=== PATIENT | male | born 1945 | race Hispanic/Latino ===

== ENCOUNTER 2018-12-30 10:51 | Day surgery (SDC) | payer OTHER ==
[2018-12-30] MEDS ORDERED: Ringers Lactate 1,000 ML IV ONE (11:10)
[2018-12-30] MEDS: OXYMETAZOLINE HCL 0.05% 15ML NAS ONE ×3 (11:17→11:31)
[2018-12-30] MEDS ORDERED: NA CHLORIDE 0.9% 500 ML ONE (12:25)
[2018-12-30] MEDS ORDERED: LIDOCAINE 1% W/EPI 1:100,000 MDV 50 ML VIAL ONE (12:25)
[2018-12-30] MEDS ORDERED: OXYMETAZOLINE HCL 0.05% 15ML NAS ONE (12:25)
[2018-12-30] MEDS ORDERED: MIDAZOLAM HCL 2 MG/2 ML INJ ONE (12:31)
[2018-12-30] MEDS ORDERED: PROPOFOL 200 MG/20 ML VIAL IV ONE (12:38)
[2018-12-30] MEDS ORDERED: FENTANYL CITR 100 MCG/2 ML ONE (12:38)
[2018-12-30] MEDS ORDERED: LIDOCAINE 2% MPF 5 ML VIAL ONE (12:39)
[2018-12-30] MEDS ORDERED: ONDANSETRON 4 MG/2 ML VIAL ONE (12:40)
[2018-12-30] MEDS ORDERED: ROCURONIUM 50 MG/5 ML VIAL IV ONE (12:40)
[2018-12-30] MEDS ORDERED: EPHEDRINE SULF 50 MG/ML VIAL ONE (12:58)
--- NOTE | 2018-12-30 13:15 | P.BOP ---
Preoperative diagnosis: septal deviation, turb hypertrophy, nasal obstruction Postoperative diagnosis: same Primary procedure: septoplasty, submucuous resection B IT with downfracture Coach Cleaner: NONE,NONE Estimated blood loss: 15ml Specimen: none Findings: bone and cartilage deviation Complications: None Implants: gelfoam to B nares Fluids & blood products: crystalloid 700ml Transferred to: Recovery Room Condition: Good
[2018-12-30] MEDS ORDERED: GLYCOPYRROLATE 0.2 MG/ML SYR ONE ×3 (13:26→13:42)
[2018-12-30] MEDS ORDERED: NEOSTIGMINE 1 MG/ML -10 ML VIAL ONE (13:27)
[2018-12-30] MEDS ORDERED: HYDROCODONE/APAP 5/325 MG TAB PO ONE (14:45)
[2018-12-30] MEDS ORDERED: HYDROCODONE/APAP 5/325 MG TAB ONE (15:04)
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
== END 2018-12-30 15:27 | disposition home or self-care (01) ==
LOC: OR 10:51
PROVIDERS: ATTEND Otolaryngology
PROC: 09BL3ZZ Excision of Nasal Turbinate, Percutaneous Approach (ICD-10-PCS; 2018-12-30)
PROC: 09BM0ZZ Excision of Nasal Septum, Open Approach (ICD-10-PCS; principal; 2018-12-30 12:00)
DX: J34.2 Deviated nasal septum (principal); J34.3 Hypertrophy of nasal turbinates; J34.89 Other specified disorders of nose and nasal sinuses; R06.83 Snoring; G47.30 Sleep apnea, unspecified; I10 Essential (primary) hypertension; Z79.899 Other long term (current) drug therapy
CPT/HCPCS: 30520; 30140; J2704; J2710; J2250; J3010; J2405

== ENCOUNTER 2018-12-31 02:09 | Emergency (ER) | payer OTHER ==
--- NOTE | 2018-12-31 02:44 | EDPHYS ---
Physician Documentation [facility] Name: Jose Norman Age: 73 yrs Sex: Male : 1945 Arrival Date: 12/31/2018 Time: 02:10 Bed 7 Private MD: Panda Shah HPI: 12/31 02:40 This 73 yrs old Male presents to ER via Wheelchair with complaints of Post elva Surgical Pain - Nasal, Urinary Problem. 02:40 The patient presents with urinary symptoms, dribbling of urine, retention. Onset: The elva symptoms/episode began/occurred 1 day(s) ago. Modifying factors: The symptoms are alleviated by nothing, the symptoms are aggravated by nothing. Associated signs and symptoms: The patient has no apparent associated signs or symptoms. The patient has not experienced similar symptoms in the past. Historical: - Allergies: 02:21 No Known Allergies; tl2 - Home Meds: 02:21 losartan oral oral [Active]; Tramadol Oral [Active]; tl2 - PMHx: 02:21 Hypertension; tl2 - PSHx: 02:21 nasal surgery; tl2 - Immunization history:: Adult Immunizations up to date. - Social history:: Smoking status: Patient/guardian denies using tobacco. - Ebola Screening: : No symptoms or risks identified at this time. - Family history:: not pertinent. ROS: 02:40 Constitutional: Negative for fever, chills, and weight loss, Eyes: Negative for injury, elva pain, redness, and discharge, ENT: Negative for injury, pain, and discharge, Neck: Negative for injury, pain, and swelling, Cardiovascular: Negative for chest pain, palpitations, and edema, Respiratory: Negative for shortness of breath, cough, wheezing, and pleuritic chest pain, Back: Negative for injury and pain, : Negative for injury, bleeding, discharge, and swelling, MS/Extremity: Negative for injury and deformity, Skin: Negative for injury, rash, and discoloration, Neuro: Negative for headache, weakness, numbness, tingling, and seizure, Psych: Negative for depression, anxiety, suicide ideation, homicidal ideation, and hallucinations, Allergy/Immunology: Negative for hives, rash, and allergies, Endocrine: Negative for neck swelling, polydipsia, polyuria, polyphagia, and marked weight changes, Hematologic/Lymphatic: Negative for swollen nodes, abnormal bleeding, and unusual bruising. 02:40 Abdomen/GI: Positive for abdominal pain, of the right lower quadrant and left lower quadrant. Exam: 02:40 Constitutional: This is a well developed, well nourished patient who is awake, alert, elva and in no acute distress. Head/Face: Normocephalic, atraumatic. Eyes: Pupils equal round and reactive to light, extra-ocular motions intact. Lids and lashes normal. Conjunctiva and sclera are non-icteric and not injected. Cornea within normal limits. Periorbital areas with no swelling, redness, or edema. ENT: Nares patent. No nasal discharge, no septal abnormalities noted. Tympanic membranes are normal and external auditory canals are clear. Oropharynx with no redness, swelling, or masses, exudates, or evidence of obstruction, uvula midline. Mucous membranes moist. Neck: Trachea midline, no thyromegaly or masses palpated, and no cervical lymphadenopathy. Supple, full range of motion without nuchal rigidity, or vertebral point tenderness. No Meningismus. Chest/axilla: Normal chest wall appearance and motion. Nontender with no deformity. No lesions are appreciated. Cardiovascular: Regular rate and rhythm with a normal S1 and S2. No gallops, murmurs, or rubs. Normal PMI, no JVD. No pulse deficits. Respiratory: Lungs have equal breath sounds bilaterally, clear to auscultation and percussion. No rales, rhonchi or wheezes noted. No increased work of breathing, no retractions or nasal flaring. Back: No spinal tenderness. No costovertebral tenderness. Full range of motion. Skin: Warm, dry with normal turgor. Normal color with no rashes, no lesions, and no evidence of cellulitis. MS/ Extremity: Pulses equal, no cyanosis. Neurovascular intact. Full, normal range of motion. Neuro: Awake and alert, GCS 15, oriented to person, place, time, and situation. Cranial nerves II-XII grossly intact. Motor strength 5/5 in all extremities. Sensory grossly intact. Cerebellar exam normal. Normal gait. Psych: Awake, alert, with orientation to person, place and time. Behavior, mood, and affect are within normal limits. 02:40 Abdomen/GI: Inspection: abdomen appears normal, Bowel sounds: normal, Palpation: mild abdominal tenderness, moderate abdominal tenderness, in the suprapubic area, Liver: no appreciated palpable abnormalities, Hernia: not appreciated. Vital Signs: 02:21 BP 174 / 92; Pulse 89; Resp 18; Temp 98.3(A); Pulse Ox 95% on R/A; Weight 86.18 kg; tl2 Height 5 ft. 8 in. (172.72 cm); Pain 5/10; 03:00 BP 147 / 86; Pulse 70; Resp 18; Pulse Ox 98% ; ea 02:21 Body Mass Index 28.89 (86.18 kg, 172.72 cm) tl2 MDM: 02:19 Patient medically [facility]. [facility] 02:26 [facility] medically [facility] 02:40 Data reviewed: vital signs, nurses notes, lab test result(s), urinalysis. [facility] 12/31 02:55 Order name: Urine Dipstick--Ancillary (enter results) [facility] 12/31 02:40 Order name: Urine Dipstick-Ancillary (obtain specimen); Complete Time: 02:42 [facility] 12/31 02:40 Order name: Burt; Complete Time: 02:41 [facility] 12/31 02:40 Order name: Burt Leg Bag; Complete Time: 03:13 [facility] 12/31 02:40 Order name: Bladder Scanner; Complete Time: 02:41 [facility] Administered Medications: 02:53 Drug: Flomax 0.4 mg Route: PO; ea 03:16 Follow up: Response: No adverse reaction ea 02:53 Drug: Cipro 500 mg Route: PO; ea 03:16 Follow up: Response: No adverse reaction Disposition: 12/31/18 02:43 Discharged to Home. Impression: Retention of urine, Retention of urine, unspecified. - Condition is Stable. - Discharge Instructions: Burt Catheter Care, Adult, Acute Urinary Retention, Male, [id number], Burt Catheter Care, Adult, [id number]. - Prescriptions for Cipro 250 mg Oral Tablet - take 1 tablet by ORAL route every 12 hours; 14 tablet. Flomax 0.4 mg Oral Capsule, Sust. Release 24 hr - take 1 capsule by ORAL route once daily 1/2 hour following the same meal each day; 30 capsule. - Medication Reconciliation Form, Thank You Letter, Antibiotic Education, Prescription Opioid Use form. - Follow up: Private Physician; When: 2 - 3 days; Reason: Recheck today's complaints, Continuance of care, Re-evaluation by your physician. Follow up: Mariaelena Thompson MD; When: 1 - 2 days; Reason: Recheck today's complaints, Re-evaluation by your physician. - Problem is new. - Symptoms have improved. Signatures: Dispatcher [employer] EDPanda De Leon MD MD cha Knox, Taylor RN RN tl2 Corazon Eldridge RN RN ea Corrections: (The following items were deleted from the chart) 03:22 02:43 12/31/2018 02:43 Discharged to Home. Impression: Retention of urine; Retention of ea urine, unspecified. Condition is Stable. Forms are Medication Reconciliation Form, Thank You Letter, Antibiotic Education, Prescription Opioid Use. Follow up: Private Physician; When: 2 - 3 days; Reason: Recheck today's complaints, Continuance of care, Re-evaluation by your physician. Follow up: Mariaelena Thompson; When: 1 - 2 days; Reason: Recheck today's complaints, Re-evaluation by your physician. Problem is new. Symptoms have improved. elva
--- NOTE | 2018-12-31 02:44 | ER ---
Nurse's Notes [facility] Name: Jose Norman Age: 73 yrs Sex: Male : 1945 Arrival Date: 12/31/2018 Time: 02:10 Bed 7 Private MD: Diagnosis: Retention of urine;Retention of urine, unspecified Presentation: 12/31 02:19 Presenting complaint: Patient states: Had nasal surgery this morning, has been unable tl2 to urinate since 4 pm. Transition of care: patient was not received from another setting of care. Onset of symptoms was December 30, 2018 at 16:00. Risk Assessment: Do you want to hurt yourself or someone else? Patient reports no desire to harm self or others. Initial Sepsis Screen: Does the patient meet any 2 criteria? No. Patient's initial sepsis screen is negative. Does the patient have a suspected source of infection? No. Patient's initial sepsis screen is negative. Care prior to arrival: None. 02:19 Method Of Arrival: Wheelchair tl2 02:19 Acuity: MICHELLE 3 tl2 Triage Assessment: 02:21 General: Appears in no apparent distress. uncomfortable, Behavior is anxious. : tl2 Reports inability to void, since 1600 yesterday. Historical: - Allergies: 02:21 No Known Allergies; tl2 - Home Meds: 02:21 losartan oral oral [Active]; Tramadol Oral [Active]; tl2 - PMHx: 02:21 Hypertension; tl2 - PSHx: 02:21 nasal surgery; tl2 - Immunization history:: Adult Immunizations up to date. - Social history:: Smoking status: Patient/guardian denies using tobacco. - Ebola Screening: : No symptoms or risks identified at this time. - Family history:: not pertinent. Screenin:24 Abuse screen: Denies threats or abuse. Nutritional screening: No deficits noted. tl2 Tuberculosis screening: No symptoms or risk factors identified. Fall Risk None identified. Assessment: 02:39 General: Appears uncomfortable, Behavior is calm, cooperative, appropriate for age. ea General: Bladder scan shows approximately 767. Pain: Complains of pain in suprapubic area. Neuro: Level of Consciousness is awake, alert, obeys commands, Oriented to person, place, time, situation. Cardiovascular: Patient's skin is warm and dry. Respiratory: Airway is patent Respiratory effort is even, unlabored, Respiratory pattern is regular, symmetrical. : Reports inability to void, since 4 PM yesterday. Derm: Skin is pink, warm \T\ dry. 03:15 Reassessment: Patient and/or family updated on plan of care and expected duration. Pain ea level reassessed. Patient is alert, oriented x 3, equal unlabored respirations, skin warm/dry/pink. Post void bladder scan volume: 0. Pt reports he is feeling better, verbalized the understanding of discharge instruction and Burt catheter care. Leg bag in place pt teaching provided on proper use of leg bag. Both and pt verbalized the understanding. Pt left ED ambulatory accompanied by . Pt tolerating well. Vital Signs: 02:21 BP 174 / 92; Pulse 89; Resp 18; Temp 98.3(A); Pulse Ox 95% on R/A; Weight 86.18 kg; tl2 Height 5 ft. 8 in. (172.72 cm); Pain 5/10; 03:00 BP 147 / 86; Pulse 70; Resp 18; Pulse Ox 98% ; ea 02:21 Body Mass Index 28.89 (86.18 kg, 172.72 cm) tl2 ED Course: 02:10 Patient arrived in ED. ds1 02:18 Panda Kelly MD is Attending Physician. elva 02:21 Triage completed. tl2 02:21 Arm band placed on right wrist. tl2 02:24 Patient has correct armband on for positive identification. Fall risk band placed. tl2 Placed in gown. Bed in low position. Call light in reach. Side rails up X 1. Adult w/ patient. 02:38 Corazon Eldridge RN is Primary Nurse. ea 02:38 Burt cath inserted, using sterile technique, 16 Fr., by me, balloon inflated, to ea gravity drainage. 02:43 Mariaelena Thompson MD is Referral Physician. elva 03:15 No provider procedures requiring assistance completed. Patient did not have IV access ea during this emergency room visit. Administered Medications: 02:53 Drug: Flomax 0.4 mg Route: PO; ea 03:16 Follow up: Response: No adverse reaction ea 02:53 Drug: Cipro 500 mg Route: PO; ea 03:16 Follow up: Response: No adverse reaction ea Output: 03:14 Urine: 875ml (Burt); Total: 875ml. ea Outcome: 02:43 Discharge ordered by . elva 03:15 Discharged to home ambulatory, with significant other. ea 03:15 Condition: improved 03:15 Discharge instructions given to patient, Instructed on discharge instructions, follow up and referral plans. medication usage, Demonstrated understanding of instructions, follow-up care, medications, Prescriptions given X 2. 03:22 Patient left the ED. ea Signatures: Panda Kelly MD MD cha Sanford, Demi ds1 Jojo Johnson, RN RN tl2 Corazon Eldridge RN RN ea
[2018-12-31] MEDS ORDERED: TAMSULOSIN 0.4 MG SR CAP ONE (02:59)
[2018-12-31] MEDS ORDERED: CIPROFLOXACIN HCL 500 MG TAB ONE (03:00)
[2018-12-31 03:36] LABS: Urine Blood NEGATIVE (NEG); Urine Glucose NEGATIVE (NEG); Urine Protein NEGATIVE (NEG); Urine Specific Gravity 1.015 (1.005-1.030)
== END 2018-12-31 03:22 | disposition home or self-care (01) ==
LOC: ER 02:09
DX: R33.9 Retention of urine, unspecified (principal); I10 Essential (primary) hypertension
CPT/HCPCS: 51702; 81003; 99284

== ENCOUNTER 2020-12-03 09:02 | Observation (INO) | payer OTHER ==
--- OUTSIDE RECORDS SUMMARY | 2020-12-03 09:05 | XMS REPORT | Continuity of Care Document ---
:1945 Author Organization [facility] t Address [address] [place] [address] Care Team Providers Name Role Phone Unavailable Unavailable Unavailable Problems This patient has no known problems. Allergies, Adverse Reactions, Alerts This patient has no known allergies or adverse reactions. Medications Ordered Filled Start Stop Current Ordering Indication Dosage Frequency Signature Comments Components Source Medication Medication Date Date Medication? Clinician (SIG) Name Name Tamsulosin Tamsulosin No Kesha [address] [facility] HCl HCl 03[facility]16 [facility] Procedures This patient has no known procedures. Encounters Start End Encounter Admission Attending Care Care Encounter Source Date/Time Date/Time Type Type Clinicians Facility Department ID 2020-11-15 2020-11-15 Outpatient [facility] [id number] [facility] 2020-08-16 2020-08-16 Outpatient [facility] [id number] [facility] 2020-05-18 2020-05-18 Outpatient [facility] [id number] [facility] 2020-04-03 2020-04-03 Outpatient [facility] [id number] [facility] 2020-03-16 2020-03-16 [facility] [id number] [facility] 10:51:00 10:51:00 [facility] l [facility] Outpati ent Clinics 2020-02-23 2020-02-23 [facility] [id number] [facility] 05:40:00 05:40:00 [facility] Outpati ent Clinics 2020-02-21 2020-02-21 [facility] [id number] [facility] 11:40:00 11:40:00 [facility] Outpati ent Clinics 2020-02-20 2020-02-20 [facility] [id number] [facility] 16:20:00 16:20:00 t [facility] Outpati ent Clinics 2020-02-16 2020-02-16 [facility] [id number] [facility] 13:00:00 13:00:00 [facility] 2019-12-19 2019-12-19 [facility] [id number] [facility] 14:00:00 14:00:00 t [employer] [facility] Outpat[facility] Clinics Results This patient has no known results.
[2020-12-03] MEDS ORDERED: MORPHINE 4 MG/ML SYR ONE ×2 (10:47→13:19)
[2020-12-03] MEDS ORDERED: ONDANSETRON 4 MG/2 ML VIAL ONE ×2 (10:47→16:42)
[2020-12-03 11:44] LABS: Absolute Lymphocytes (CBC) 1.5 K/uL (0.7-4.9); Basophils % 0.7 % (0-1.3); Lymphocytes % 24.6 % (15.3-44.8); MPV 9.2 fL (7.6-11.3); RBC Red Blood Cell Count 3.78 M/uL (4.33-5.43)
[2020-12-03 11:45] LABS: Protime INR 1.12
[2020-12-03 11:59] LABS: ALT/SGPT 43 U/L (12-78); AST/SGOT 21 U/L (15-37); Albumin 3.4 g/dL (3.4-5.0); Alkaline Phosphatase 72 U/L (45-117); BUN Blood Urea Nitrogen 12 mg/dL (7-18); Bicarbonate 30 mmol/L (21-32); Bilirubin Direct 0.2 mg/dL (0-0.2); Bilirubin Total 0.4 mg/dL (0.2-1.0); Glucose Level 131 mg/dL (74-106); Magnesium 2.4 mg/dL (1.8-2.4); NT PRO-BNP 209 pg/mL (<450); Protein, Total 6.8 g/dL (6.4-8.2); Sodium Level 143 mmol/L (136-145); Troponin (Emerg Dept Use Only) < 0.02 ng/mL (0.0-0.045)
--- NOTE | 2020-12-03 12:04 | RAD REPORT ---
EXAM DESCRIPTION: CT - Angio Aorta For Dissection - 12/03/2020 11:46 am CLINICAL HISTORY: . Chest and abdominal pain COMPARISON: None TECHNIQUE: Computed tomography angiography of the chest, abdomen pelvis were obtained. 100 cc Isovue 370 was administered intravenously. Coronal and sagittal reconstruction were performed. MIP 3D reconstruction was performed All CT scans are performed using dose optimization technique as appropriate and may include automated exposure control or mA/KV adjustment according to patient size. FINDINGS: An aortic dissection is not seen. An aortic aneurysm is not displayed. The celiac, SMA and JULIETH are patent . A lung consolidation is not present. A pericardial effusion is not seen. A pleural effusion is not n oted. Fatty liver. Spleen, pancreas adrenals kidneys demonstrate no significant abnormality. There is no evidence of diverticulitis. Postsurgical changes involve spine and pelvis Appendix is borderline enlarged. No stranding within the adjacent fat. . The prostate gland is moderately enlarged. Large left and moderate right inguinal hernias contain fat IMPRESSION: Negative for an aortic dissection. Borderline enlargement of the appendix. Given that there is no stranding within the adjacent fat this probably is a normal finding for the patient. However, if the patient has clinical symptoms to sugge st appendicitis then a CT scan with oral contrast and opacification of the terminal ileum/cecum would be recommended
--- NOTE | 2020-12-03 12:04 | RAD REPORT ---
EXAM DESCRIPTION: Nicole Single View12/03/2020 10:05 am CLINICAL HISTORY: Chest pain COMPARISON: 2015 FINDINGS: The lungs appear clear of acute infiltrate. The heart is mildly enlarged IMPRESSION: No acute abnormalities displayed
--- NOTE | 2020-12-03 13:03 | EDPHYS ---
Physician Documentation [facility] Name: Jose Norman Age: 75 yrs Sex: Male : 1945 Arrival Date: 12/03/2020 Time: 09:04 Bed 18 Private MD: ED Physician Avinash Bess HPI: 12/03 09:27 This 75 yrs old Male presents to ER via Ambulatory with complaints of Back jmm Pain. 09:27 The patient presents with pain that is acute. Onset: The symptoms/episode jmm began/occurred gradually, 3 day(s) ago. The pain radiates to the thoracic area, lumbar area, left low back and right low back. Associated signs and symptoms: Pertinent negatives:. Modifying factors: The patient symptoms are alleviated by remaining still, the patient symptoms are aggravated by any movement. The patient has not experienced similar symptoms in the past. Historical: - Allergies: 09:15 No Known Allergies; sv - PMHx: 09:15 Hypertension; sv - PSHx: 09:15 nasal surgery; back rods; pelvic plate; Cholecystectomy; sv - Immunization history:: Client reports receiving the 2nd dose of the Covid vaccine, Client reports receiving the 1st dose of the Covid vaccine. - Social history:: Smoking status: Patient denies any tobacco usage or history of. ROS: 09:27 Constitutional: Negative for fever, chills, and weight loss. jmm 09:27 Abdomen/GI: Negative for abdominal pain, nausea, vomiting, diarrhea, and constipation. 09:27 Cardiovascular: Positive for chest pain. 09:27 Back: Positive for pain with movement. 09:27 All other systems are negative. Exam: 09:27 Head/Face: atraumatic. Eyes: EOMI, no conjunctival erythema appreciated ENT: Moist jmm Mucus Membranes Neck: Trachea midline, Supple 09:27 Cardiovascular: Regular rate and rhythm. No edema appreciated Respiratory: Normal respirations, no respiratory distress appreciated Abdomen/GI: Non distended, soft 09:27 Skin: General appearance color normal MS/ Extremity: Moves all extremities, no obvious deformities appreciated, no edema noted to the lower extremities Neuro: Awake and alert, normal gait Psych: Behavior is normal, Mood is normal, Patient is cooperative and pleasant 09:27 Constitutional: The patient appears alert, awake, uncomfortable. 09:27 Chest/axilla: Palpation: tenderness, that is moderate. 09:27 Back: pain, that is moderate, ROM is painful. Vital Signs: 09:13 BP 167 / 79; Pulse 62; Resp 20; Temp 98.3; Pulse Ox 97% ; Weight 88.45 kg; Height 5 ft. sv 9 in. (175.26 cm); Pain 9/10; 11:14 BP 134 / 70; Pulse 72; Resp 17 S; Pulse Ox 98% on R/A; jd3 12:12 BP 144 / 76; Pulse 61; Resp 16 S; Pulse Ox 95% on R/A; jd3 13:36 BP 148 / 71; Pulse 63; Resp 13 S; Pulse Ox 97% on R/A; jd3 16:16 BP 151 / 82; Pulse 61; Resp 15 S; Pulse Ox 96% on R/A; jd3 17:45 BP 142 / 89; Pulse 63; Resp 17 S; Pulse Ox 97% on R/A; jd3 19:18 Pulse 63; Resp 16 S; Pulse Ox 98% on R/A; ad5 09:13 Body Mass Index 28.80 (88.45 kg, 175.26 cm) sv MDM: 09:15 Patient medically screened. [facility] 13:02 Data reviewed: vital signs, nurses notes. Counseling: I had a detailed discussion with [facility] the patient and/or guardian regarding: the historical points, exam findings, and any diagnostic results supporting the discharge/admit diagnosis, lab results, radiology results, the need for further work-up and treatment in the hospital. ED course: I discussed the patient with Thomas whom accepted the patient to Dr. Bess's service. . 12/03 09:16 Order name: Basic Metabolic Panel [facility] 12/03 09:16 Order name: CBC with Diff; Complete Time: 12:08 [facility] 12/03 09:16 Order name: LFT's; Complete Time: 12:08 [facility] 12/03 09:16 Order name: Magnesium; Complete Time: 12:08 [facility] 12/03 09:16 Order name: NT PRO-BNP; Complete Time: 12:08 [facility] 12/03 09:16 Order name: PT-INR; Complete Time: 12:08 [facility] 12/03 09:16 Order name: Troponin (emerg Dept Use Only); Complete Time: 12:08 [facility] 12/03 09:17 Order name: Basic Metabolic Panel; Complete Time: 12:08 [facility] 12/03 13:01 Order name: SARS-COV-2 RT PCR; Complete Time: 13:03 [facility] 12/03 15:37 Order name: ESR [facility] 12/03 15:37 Order name: CRP [facility] 12/03 15:37 Order name: Procalcitonin [facility] 12/03 15:37 Order name: Blood Culture Adult (2) [facility] 12/03 09:16 Order name: XRAY Chest (1 view); Complete Time: 12:08 [facility] 12/03 09:16 Order name: EKG; Complete Time: 09:17 [facility] 12/03 09:16 Order name: Cardiac monitoring; Complete Time: 10:25 [facility] 12/03 09:16 Order name: EKG - Nurse/Tech; Complete Time: : [facility] 12/03 09:16 Order name: IV Saline Lock; Complete Time: 10:09 [facility] 12/03 09:16 Order name: Labs collected and sent; Complete Time: 10:09 [facility] 12/03 09:16 Order name: CT Aorta for Dissection; Complete Time: 12:08 [facility] 12/03 13:07 Order name: Pelvis Wo Cont; Complete Time: 15:33 [facility] 12/03 16:18 Order name: C-Reactive Protein; Complete Time: 16:24 [facility] 12/03 16:45 Order name: Procalcitonin; Complete Time: 16:55 [facility] 12/03 17:19 Order name: Sedimentation Rate, Westergren; Complete Time: 17:20 [facility] 12/03 09:16 Order name: O2 Per Protocol; Complete Time: 10:25 [facility] 12/03 09:16 Order name: O2 Sat Monitoring; Complete Time: : [facility] 12/03 10:09 Order name: Labs - recollect needed; Complete Time: 10:09 sv Administered Medications: 10:32 Drug: morphine 4 mg Route: IVP; Site: left forearm; jd3 11:30 Follow up: Response: No adverse reaction; RASS: Alert and Calm (0) jd3 10:32 Drug: Zofran (Ondansetron) 4 mg Route: IVP; Site: left forearm; jd3 11:30 Follow up: Response: No adverse reaction jd3 13:05 Drug: morphine 4 mg Route: IVP; Site: left forearm; jd3 19:18 Follow up: Response: No adverse reaction; Pain is decreased ad5 Disposition: 12/04 19:09 Co-signature as Attending Physician, Avinash Bess MD. rn Disposition: 12/03/20 13:03 Hospitalization ordered by Thony Bess for Observation. Preliminary diagnosis is Chest pain, unspecified. - Bed requested for Telemetry/MedSurg (observation). - Status is Observation. mw2 - Condition is Stable. - Problem is new. - Symptoms are unchanged. Signatures: Dispatcher [employer] EDMS Therese Ash, RN Rosendo Forrest, ULISES PA [facility] Avinash Bess MD MD rn Davies, Jonathon, RN RN jd3 Westbrook, MyKena mw2 Cameron Damon ad5 Corrections: (The following items were deleted from the chart) 12/03 12:12 11:10 CORONAVIRUS+MR.LAB.BRZ ordered. EDME EDMS 12:52 12:33 Abdomen Pelvis W Con+CT.RAD.BRZ ordered. EDME EDMS 13:07 12:52 Abdomen ordered. EDME EDMS 17:37 13:03 Hospitalization Ordered by Thony Bess MD for Observation. Preliminary sv diagnosis is Chest pain, unspecified. Bed requested for Telemetry/MedSurg (observation). Status is Observation. Condition is Stable. Problem is new. Symptoms are unchanged. [facility] 19:51 17:37 12/03/2020 13:03 Hospitalization Ordered by Thony Bess MD for Observation. mw2 Preliminary diagnosis is Chest pain, unspecified. Bed requested for Telemetry/MedSurg (observation). Status is Observation. Condition is Stable. Problem is new. Symptoms are unchanged. sv
--- NOTE | 2020-12-03 13:03 | ER ---
Nurse's Notes [facility] Name: Jose Norman Age: 75 yrs Sex: Male : 1945 Arrival Date: 12/03/2020 Time: 09:04 Bed 18 Private MD: Diagnosis: Chest pain, unspecified Presentation: 12/03 09:13 Chief complaint: Patient's son or daughter states: upper and mid back, chest pain worse sv with movement x 2 days. Coronavirus screen: Client denies travel out of the [place] in the last 14 days. At this time, the client does not indicate any symptoms associated with coronavirus-19. Ebola Screen: No symptoms or risks identified at this time. Initial Sepsis Screen: Does the patient meet any 2 criteria? No. Patient's initial sepsis screen is negative. Does the patient have a suspected source of infection? No. Patient's initial sepsis screen is negative. Risk Assessment: Do you want to hurt yourself or someone else? Patient reports no desire to harm self or others. Onset of symptoms was December 01, 2020. 09:13 Method Of Arrival: Ambulatory sv 09:13 Acuity: MICHELLE 2 sv Historical: - Allergies: 09:15 No Known Allergies; sv - PMHx: 09:15 Hypertension; sv - PSHx: 09:15 nasal surgery; back rods; pelvic plate; Cholecystectomy; sv - Immunization history:: Client reports receiving the 2nd dose of the Covid vaccine, Client reports receiving the 1st dose of the Covid vaccine. - Social history:: Smoking status: Patient denies any tobacco usage or history of. Screenin:23 Abuse screen: Denies threats or abuse. Nutritional screening: No deficits noted. jd3 Tuberculosis screening: No symptoms or risk factors identified. Fall Risk Ambulatory Aid- None/Bed Rest/Nurse Assist (0 pts). Gait- Normal/Bed Rest/Wheelchair (0 pts) Mental Status- Oriented to own ability (0 pts). Total Kapadia Fall Scale indicates No Risk (0-24 pts). Assessment: 09:05 General: Appears in no apparent distress. uncomfortable, Behavior is calm, cooperative, jd3 appropriate for age. Pain: Complains of pain in back Pain radiates to chest Quality of pain is described as aching. Neuro: Level of Consciousness is awake, alert, obeys commands, Oriented to person, place, time, situation. Cardiovascular: Denies chest pain, Capillary refill < 3 seconds Patient's skin is warm and dry. Rhythm is regular. Respiratory: Airway is patent Respiratory effort is even, unlabored, Respiratory pattern is regular, symmetrical, Denies cough, shortness of breath. GI: No signs and/or symptoms were reported involving the gastrointestinal system. : No signs and/or symptoms were reported regarding the genitourinary system. EENT: No signs and/or symptoms were reported regarding the EENT system. Derm: Skin is intact, Skin is dry, Skin is normal, Skin temperature is warm. Musculoskeletal: Circulation, motion, and sensation intact. Range of motion: intact in all extremities. 11:14 Reassessment: Patient appears in no apparent distress at this time. No changes from jd3 previously documented assessment. Patient and/or family updated on plan of care and expected duration. Pain level reassessed. Patient is alert, oriented x 3, equal unlabored respirations, skin warm/dry/pink. 12:12 Reassessment: Patient appears in no apparent distress at this time. No changes from jd3 previously documented assessment. Patient and/or family updated on plan of care and expected duration. Pain level reassessed. Patient is alert, oriented x 3, equal unlabored respirations, skin warm/dry/pink. 13:35 Reassessment: Patient appears in no apparent distress at this time. Patient and/or jd3 family updated on plan of care and expected duration. Pain level reassessed. Patient is alert, oriented x 3, equal unlabored respirations, skin warm/dry/pink. awaiting admission. 15:00 Reassessment: Patient appears in no apparent distress at this time. No changes from jd3 previously documented assessment. Patient and/or family updated on plan of care and expected duration. Pain level reassessed. Patient is alert, oriented x 3, equal unlabored respirations, skin warm/dry/pink. 16:17 Reassessment: Patient appears in no apparent distress at this time. Patient and/or jd3 family updated on plan of care and expected duration. Pain level reassessed. Patient is alert, oriented x 3, equal unlabored respirations, skin warm/dry/pink. Hospitalist at bedside. 17:00 Reassessment: Patient appears in no apparent distress at this time. Patient and/or jd3 family updated on plan of care and expected duration. Pain level reassessed. Patient is alert, oriented x 3, equal unlabored respirations, skin warm/dry/pink. awaiting admission. 18:00 Reassessment: Patient appears in no apparent distress at this time. No changes from jd3 previously documented assessment. Patient and/or family updated on plan of care and expected duration. Pain level reassessed. Patient is alert, oriented x 3, equal unlabored respirations, skin warm/dry/pink. 18:30 Reassessment: Patient appears in no apparent distress at this time. Patient and/or jd3 family updated on plan of care and expected duration. Pain level reassessed. Patient is alert, oriented x 3, equal unlabored respirations, skin warm/dry/pink. report attempt made, nurse was busy. 19:18 Reassessment: Patient appears in no apparent distress at this time. Patient and/or ad5 family updated on plan of care and expected duration. Pain level reassessed. Patient is alert, oriented x 3, equal unlabored respirations, skin warm/dry/pink. Patient denies pain at this time. Vital Signs: 09:13 BP 167 / 79; Pulse 62; Resp 20; Temp 98.3; Pulse Ox 97% ; Weight 88.45 kg; Height 5 ft. sv 9 in. (175.26 cm); Pain 9/10; 11:14 BP 134 / 70; Pulse 72; Resp 17 S; Pulse Ox 98% on R/A; jd3 12:12 BP 144 / 76; Pulse 61; Resp 16 S; Pulse Ox 95% on R/A; jd3 13:36 BP 148 / 71; Pulse 63; Resp 13 S; Pulse Ox 97% on R/A; jd3 16:16 BP 151 / 82; Pulse 61; Resp 15 S; Pulse Ox 96% on R/A; jd3 17:45 BP 142 / 89; Pulse 63; Resp 17 S; Pulse Ox 97% on R/A; jd3 19:18 Pulse 63; Resp 16 S; Pulse Ox 98% on R/A; ad5 09:13 Body Mass Index 28.80 (88.45 kg, 175.26 cm) sv ED Course: 09:04 Patient arrived in ED. ds1 09:06 Rosendo Brown PA is PHCP. jmm 09:06 Avinash Bess MD is Attending Physician. jm 09:07 Erik Alejandre, CARLOS is Primary Nurse. jd3 09:14 Triage completed. sv 09:15 Arm band placed on. sv 09:45 Missed attempt(s): 20 gauge in right forearm. Bleeding controlled, band aid applied, jd3 catheter tip intact. Missed attempt(s): 20 gauge in left antecubital area. Bleeding controlled, band aid applied, catheter tip intact. 09:50 Inserted saline lock: 20 gauge in left forearm, using aseptic technique. Blood sv collected. Flushed left forearm with 2 ml normal saline. 10:05 XRAY Chest (1 view) In Process Unspecified. EDMS 10:09 Basic Metabolic Panel Sent. sv 11:46 CT Aorta for Dissection In Process Unspecified. EDMS 12:23 Nurse Practitioner and/or Physician Records Coordinator to see patient. jd3 12:24 Patient has correct armband on for positive identification. Bed in low position. Call jd3 light in reach. Side rails up X 1. Adult w/ patient. hall monitor on. Pulse ox on. NIBP on. 13:02 Thony Bess MD is Hospitalizing Provider. [facility] 18:33 No provider procedures requiring assistance completed. Patient admitted, IV remains in jd3 place. Administered Medications: 10:32 Drug: morphine 4 mg Route: IVP; Site: left forearm; jd3 11:30 Follow up: Response: No adverse reaction; RASS: Alert and Calm (0) jd3 10:32 Drug: Zofran (Ondansetron) 4 mg Route: IVP; Site: left forearm; jd3 11:30 Follow up: Response: No adverse reaction jd3 13:05 Drug: morphine 4 mg Route: IVP; Site: left forearm; jd3 19:18 Follow up: Response: No adverse reaction; Pain is decreased ad5 Outcome: 13:03 Decision to Hospitalize by Provider. [facility] 18:33 Condition: stable jd3 19:38 Admitted to Med/surg accompanied by tech, via wheelchair, Report called to CARLOS Chandra ad5 19:38 Instructed on the need for admit, Demonstrated understanding of instructions. 19:51 Patient left the ED. mw2 Signatures: Dispatcher [employer] EDTherese Jade RN RN sv Mickail, Joel, PA PA jmm Sanford, Demi ds1 Erik Alejandre RN RN jd3 Lavell Badillo mw2 Cameron Damon Corrections: (The following items were deleted from the chart) 09:17 09:13 Acuity: MICHELLE 3 sv sv 10:32 10:32 morphine 4 mg IVP in right antecubital jd3 jd3 13:05 13:05 morphine 4 mg IVP in right antecubital jd3 jd3
--- NOTE | 2020-12-03 15:30 | RAD REPORT ---
EXAM DESCRIPTION: CT - Pelvis Wo Cont - 12/03/2020 3:09 pm COMPARISON: None. TECHNIQUE: Axial 5 millimeter thick images of the pelvis were obtained following oral contrast. Exam is performed as a a requested follow-up due to abnormalities on earlier study. Sagittal and coronal reformatted images were generated and reviewed. All CT scans are performed using dose optimization technique as appropriate and may include automated exposure control or mA/KV adjustment according to patient size. FINDINGS: Contrast fills the urinary bladder and contrast is seen in the nondilated ureters from the earlier contrast-enhanced study. Enlarged prostate gland is present with lobulated contour projectin g into the bladder base. Degenerative and postsurgical changes are present to the pelvis with no acut e or pathologic bone process identified. Patient has large fat filled bilateral inguinal hernias. Nondilated small bowel loops are partially opacified by contrast. The oral contrast has not reached t he terminal ileum. However, the amount of fat the bowel loops is felt to be sufficient for adequate evaluation. Patient has moderately prominent sigmoid diverticulosis. Imaged portions of col on show no acute findings. The appendix is relatively prominent in size measuring up to 9-10 mm. The appendix is relatively short in overall length. There is a air and bowel content in the base of the a ppendix. Fatty tissues surrounding the appendix are pristine. Although prominent in diameter, the pos sibility of acute appendicitis is felt to be very low. Adjacent small bowel loops are unremarkable. T here is no thickening of the wall at the tip of the cecum. Moderate stool volume is present in the ce cum. No free air, free fluid or pneumatosis. IMPRESSION: Re-evaluation of the appendix again demonstrates a relatively prominent size. However th ere is no additional finding supporting appendicitis. Acute appendicitis is felt to be highly unlikel y. Additional nonacute findings are detailed in the body of the report.
[2020-12-03] MEDS ORDERED: HYDRALAZINE HCL 20 MG/ML VIAL IV PRN (16:36)
--- NOTE | 2020-12-03 16:57 | P.HP ---
Certification for Inpatient Patient admitted to: Observation With expected LOS: <2 Midnights Patient will require the following post-hospital care: None Practitioner: I am a practitioner with admitting privileges, knowledge of patient current condition, hospital course, and medical plan of care. Services: Services provided to patient in accordance with Admission requirements found in Title 42 Section 412.3 of the Code of Federal Regulations <[email or web address] metz - Last Filed: 12/03/20 19:45> Patient History Date of Service: 12/03/20 Reason for admission: Chest pain History of Present Illness: Patient is a 75-year-old male with a past medical history significant for hypertension and chronic back pain who presents with complaint of back and chest pain that been ongoing for the past 3 days. Patient reported that pain started initially from the back. Patient indicated that he later started experiencing pain in the right chest wall and pain migrated to the substernal chest area. Patient rated pain as 9/10 in severity and described pain as stabbing in quality. Patient initially denied abdominal pain on assessment but later informed attending MD that he had right lower quadrant pain for the past 5 days. Patient denies any other signs or symptoms. Symptoms are aggravated or relieved by nothing. Patient decided to present to the hospital due to worsening symptoms. - Past Medical/Surgical History -: HTN -: Chronic pain pain - Social History Smoking Status: Never smoker Alcohol use: No CD- Drugs: No Caffeine use: No Place of Residence: Home <Hedy Crouchjayro Heidi - Last Filed: 12/03/20 19:45> Date of Service: 12/03/20 - Family History Family History: Reviewed- Non-Contributory <Thony Bess - Last Filed: 12/03/20 21:11> Allergies No Known Allergies Allergy (Verified 12/28/18 14:49) Home Medications: Losartan Potassium 100 mg PO [id number] 12/28/18 Metoprolol Succinate [Toprol Xl] 100 mg PO [id number] 12/28/18 hydroCHLOROthiazide [Hydrochlorothiazide] 25 mg PO DAILY 12/28/18 Review of Systems General: Unremarkable Eyes: Unremarkable ENT: Unremarkable Respiratory: Unremarkable Cardiovascular: Chest Pain Gastrointestinal: Abdominal Pain Genitourinary: Unremarkable Musculoskeletal: Unremarkable Integumentary: Unremarkable Neurological: Unremarkable Lymphatics: Unremarkable <MkioHedyjayro E - Last Filed: 12/03/20 19:45> Physical Examination - Physical Exam General: Alert, In no apparent distress, Oriented x3 HEENT: Atraumatic, PERRLA, Mucous membr. moist/pink, EOMI, Sclerae nonicteric Neck: Supple, 2+ carotid pulse no bruit, No LAD, Without JVD or thyroid abnormality Respiratory: Clear to auscultation bilaterally, Normal air movement Cardiovascular: No edema, Regular rate/rhythm, Normal S1 S2 Capillary refill: <2 Seconds Gastrointestinal: Normal bowel sounds, Tenderness (RLQ) Musculoskeletal: No clubbing, No tenderness Integumentary: No rashes Neurological: Normal gait, Normal speech, Normal strength at 5/5 x4 extr, Normal tone, Normal affect Lymphatics: No axilla or inguinal lymphadenopathy External genitalia: Deferred Rectal: Deferred - Studies Laboratory Data (last 24 hrs) 12/03/20 11:28: PT 12.9 H, INR 1.12 12/03/20 11:28: WBC 6.30, Hgb 11.0 L, Hct 33.0 L, Plt Count 184 12/03/20 11:28: Sodium 143, Potassium 4.0, BUN 12, Creatinine 0.76, Glucose 131 H, Magnesium 2.4, Total Bilirubin 0.4, AST 21, ALT 43, Alkaline Phosphatase 72 <Manuel Crouch - Last Filed: 12/03/20 19:45> - Studies Laboratory Data (last 24 hrs) 12/03/20 11:28: PT 12.9 H, INR 1.12 12/03/20 11:28: WBC 6.30, Hgb 11.0 L, Hct 33.0 L, Plt Count 184 12/03/20 11:28: Sodium 143, Potassium 4.0, BUN 12, Creatinine 0.76, Glucose 131 H, Magnesium 2.4, Total Bilirubin 0.4, AST 21, ALT 43, Alkaline Phosphatase 72 <Thony Bess - Last Filed: 12/03/20 21:11> Assessment and Plan - Plan --Chest pain of unclear etiology. Cardiology consulted. Will trend troponins. Telemetry. Echocardiogram pending. Will await further recommendations from hemstitching machine operator. --Abdominal pain. Imaging indicates large fat filled bilateral inguinal hernias as well as borderline enlargement of the appendix. Surgeon consulted. Will await further recommendations. Continue conservative management for now. --Acute on chronic back pain. Will manage with current medication regimen. --Hypertension. Poorly controlled. Continue home medications and hydralazine p.r.n.. --DVT prophylaxis with heparin subQ Discharge Plan: Home Plan to discharge in: 48 Hours - Advance Directives Does patient have a Living Will: No Does patient have a Durable POA for Healthcare: No - Code Status/Comfort Care Code Status Assessed: Yes Code Status: Full Code Critical Care: No <Manuel Crouch - Last Filed: 12/03/20 19:45> - Plan Patient seen and examined. Chest pain - trend troponins, Echo ordered, cardiology consulted, r/o ACS RLQ abd pain - x5 days, CT with enlarged appendix, no other signs of appendicitis, pt without leukocytosis and afebrile. Does report some chills at home. Has moderate RLQ tenderness on exam, no rebound -unlikely appendicitis, possibly smoldering, however no local adenopathy or fat stranding. General Surgery consulted - agreed and ok to feed, will monitor with abd exams and see if it declares itself, no antibiotics Back pain - also for the past ~5 days; reports some mild/vague weakness of b/l legs. RLE: 5/5 strength, LLE: 4+/5. Pain control, consider MRI if no improvement / further red flags. He denies radiculopathy and no new neuropathy. Time Spent Managing Pts Care (In Minutes): 60 <Thony Bess - Last Filed: 12/03/20 21:11>
[2020-12-03] MEDS ORDERED: HYDROCODONE/APAP 5/325 MG TAB PO PRN (19:55)
[2020-12-03] MEDS ORDERED: ONDANSETRON 4 MG/2 ML VIAL IV PRN (19:55)
[2020-12-03] MEDS ORDERED: ALBUTEROL 2.5 MG/3 ML NEB SOL NEB PRN (19:55)
[2020-12-03] MEDS ORDERED: ACETAMINOPHEN 500 MG TAB PO PRN (19:55)
[2020-12-03 20:02] VITALS: BMI 31.8
[2020-12-03] MEDS: ASPIRIN 81 MG CHEWABLE TABLET PO SCH (22:00)
[2020-12-03] MEDS: HEPARIN 5000 UNIT/ML 1 ML VIAL SQ SCH (22:00)
--- NOTE | 2020-12-03 22:11 | P.CNS ---
Date of Consult: 12/03/20 PC: This 75-year-old male presents to the emergency room with abdominal pain for diagnosis and treatment. HPC: Patient states he has been having abdominal pain for the last 4-5 days. Located in the upper portion of the abdomen. Became very severe and came to the emergency room. PMH: Hypertension, chronic abdominal pain SOC: No known allergies, on antihypertensives and chronic pain medication SYS REVIEW: White states he is not been feeling well for the last 4-5 days. Has a lot of backache. Also some hesitancy with urination. No cough or fever. O/E awake alert stable, states at the moment that he is pain-free. HEENT: Not jaundiced Chest: Chest movement equal bilaterally ABD: Abdomen is soft, no guarding or rebound LOCO: Intact DATA: CT scan is unremarkable, comments are made about the appendix, but low suspicion for appendicitis IMPRESSION: Abdominal pain of unknown origin PLAN: Continue to observe patient, will reassess in a.m.. Does not appear to have any need for surgical intervention at the moment.
[2020-12-04 03:48] LABS: Absolute Lymphocytes (CBC) 1.7 K/uL (0.7-4.9); Basophils % 0.5 % (0-1.3); Hematocrit 31.1 % (39.6-49.0); Lymphocytes % 27.7 % (15.3-44.8); MPV 9.8 fL (7.6-11.3); RBC Red Blood Cell Count 3.54 M/uL (4.33-5.43)
[2020-12-04 04:17] LABS: BUN Blood Urea Nitrogen 10 mg/dL (7-18); Bicarbonate 32 mmol/L (21-32); Glucose Level 135 mg/dL (74-106); HDL Cholesterol 40 mg/dL (40-60); LDL Cholesterol, Calculated 96 (<130); Potassium 4.1 mmol/L (3.5-5.1); Sodium Level 143 mmol/L (136-145); Troponin I < 0.02 ng/mL (0.0-0.045)
[2020-12-04 06:00] LABS: Urine Appearance CLEAR (Clear); Urine Bilirubin NEGATIVE (Negative); Urine Blood NEGATIVE (Negative); Urine Color YELLOW (Yellow); Urine Glucose NEGATIVE (Negative); Urine Protein NEGATIVE (Negative); Urine pH 5.5 (5.0-7.0)
[2020-12-04 06:04] LABS: Urine Microscopic Reflex NO UMIC
[2020-12-04] MEDS: HEPARIN 5000 UNIT/ML 1 ML VIAL SQ SCH (08:54)
[2020-12-04] MEDS: ASPIRIN 81 MG CHEWABLE TABLET PO SCH (08:54)
--- NOTE | 2020-12-04 11:04 | P.DS ---
Admission Date: 12/03/20 Discharge Date: 12/04/20 Disposition: ROUTINE DISCHARGE Discharge Condition: FAIR Reason for Admission: Chest pain Consultations: General surgeon-Dr. Diop - Problems (1) Chest pain Current Visit: Yes Status: Acute (2) Chronic back pain Current Visit: Yes Status: Acute (3) Essential hypertension Current Visit: Yes Status: Acute Brief History of Present Illness: 75-year-old Greenlandic-speaking gentleman presented to the emergency department with a complaint of back pain that radiated to involve his chest. Patient was also complaining of abdominal pain. Initial troponin in the ED negative. EKG unremarkable. CT dissection unremarkable except borderline enlarged appendix. The patient was hospitalized for ACS rule out. Hospital Course: Troponin trended negative. His chest pain resolved. Was complaining of right shoulder pain which is worse with movement. Patient was seen in consultation by general surgery-Dr. Diop will consider patient abdomen benign with no surgical indication. Serial abdominal examination showed benign abdomen. ACS has been ruled out. Patient is currently asymptomatic and deemed stable for dunia wing. He is asked to follow with his PCP within 1 week to re-evaluate his abdomen. Vital Signs/Physical Exam: Temp Pulse Resp BP Pulse Ox 97.8 F 55 18 131/71 95 12/04/20 08:00 12/04/20 08:00 12/04/20 08:00 12/04/20 08:00 12/04/20 08:00 General: Alert, In no apparent distress, Oriented x3 HEENT: PERRLA, Sclerae nonicteric Neck: Supple, JVD not distended Respiratory: Clear to auscultation bilaterally, Normal air movement Cardiovascular: No edema, Regular rate/rhythm, Normal S1 S2 Gastrointestinal: Normal bowel sounds, Soft and benign, Non-distended, No tenderness Musculoskeletal: No swelling, No erythema Integumentary: No rashes Neurological: Normal strength at 5/5 x4 extr, Cranial nerves 3-12 intact Laboratory Data at Discharge: WBC 6.20 K/uL (4.3-10.9) 12/04/20 02:57 Hgb 10.5 g/dL (13.6-17.9) L 12/04/20 02:57 Hct 31.1 % (39.6-49.0) L 12/04/20 02:57 Plt Count 182 K/uL (152-406) 12/04/20 02:57 PT 12.9 SECONDS (9.5-12.5) H 12/03/20 11:28 INR 1.12 12/03/20 11:28 Sodium 143 mmol/L (136-145) 12/04/20 02:57 Potassium 4.1 mmol/L (3.5-5.1) 12/04/20 02:57 BUN 10 mg/dL (7-18) 12/04/20 02:57 Creatinine 0.75 mg/dL (0.55-1.3) 12/04/20 02:57 Glucose 135 mg/dL (74-106) H 12/04/20 02:57 Magnesium 2.4 mg/dL (1.8-2.4) 12/03/20 11:28 Total Bilirubin 0.4 mg/dL (0.2-1.0) 12/03/20 11:28 AST 21 U/L (15-37) 12/03/20 11:28 ALT 43 U/L (12-78) 12/03/20 11:28 Alkaline Phosphatase 72 U/L (45-117) 12/03/20 11:28 Troponin I Cancelled 12/04/20 03:00 Triglycerides 125 mg/dL (<150) 12/04/20 02:57 Cholesterol 161 mg/dL (<200) 12/04/20 02:57 HDL Cholesterol 40 mg/dL (40-60) 12/04/20 02:57 Cholesterol/HDL Ratio 4.03 12/04/20 02:57 Home Medications: Losartan Potassium 100 mg PO DAILY 12/28/18 Finasteride 1 tab PO DAILY 12/03/20 Prazosin HCl 1 tab PO DAILY 12/03/20 Tamsulosin [Flomax*] 1 cap PO DAILY 12/03/20 Aspirin [Aspirin EC] 81 mg PO DAILY #30 tablet. 12/04/20 New Medications: Aspirin [Aspirin EC] 81 mg PO DAILY #30 tablet. Diet: AHA Activity: Ad priyanka Followup: Elmer Arce MD [Primary Care Provider] - 1-2 Weeks
[2020-12-04 12:45] VITALS: BP 135/78; TEMP 97.4
[2020-12-04 12:52] VITALS: O2SAT 94
--- NOTE | 2020-12-05 12:03 | EKG ---
Test Date: 2020-12-03 Test Time: 09:20:15 [employer] Supervisor: SHERLY MEASUREMENT RESULTS: Intervals: Rate: 71 OR: 220 QRSD: 84 QT: 412 QTc: 447 [place]: P: 56 OR: 220 QRS: 21 T: 46 INTERPRETIVE STATEMENTS: Sinus rhythm with 1st degree AV block Otherwise normal ECG Compared to ECG 08/14/2015 16:12:15 Sinus bradycardia no longer present Ventricular premature complex(es) no longer present Electronically Signed On 12-05-20 11:54:47 CDT by Ruslan Davies
--- NOTE | 2020-12-05 12:49 | ECHO ---
HEIGHT: 5 ft 6 in WEIGHT: 197 lb 8 oz DATE OF STUDY: 12/04/[address]: Manuel Crouch 2-DIMENSIONAL: YES M.MODE: YES DOPPLER: YES COLOR FLOW: YES TDS: NO PORTABLE: NO DEFINITY: NO BUBBLE STUDY: NO DIAGNOSIS: CARDIAC HISTORY: CATHERIZATION: SURGERY: PROSTHETIC VALVE: PACEMAKER: MEASUREMENTS (cm) DIASTOLIC (NORMALS) SYSTOLIC (NORMALS) IVSd 1.1 (0.6-1.2) LA Diam 3.9 (1.9-4.0) LVEF 67% LVIDd 5.5 (3.5-5.7) LVIDs 3.4 (2.0-3.5) %FS 37% LVPWd 1.1 (0.6-1.2) Ao Diam 3.2 (2.0-3.7) 2 DIMENSIONAL ASSESSMENT: RIGHT ATRIUM: NORMAL LEFT ATRIUM: NORMAL RIGHT VENTRICLE: NORMAL LEFT VENTRICLE: NORMAL TRICUSPID VALVE: NORMAL MITRAL VALVE: NORMAL PULMONIC VALVE: NORMAL AORTIC VALVE: NORMAL PERICARDIAL EFFUSION: NONE AORTIC ROOT: NORMAL LEFT VENTRICULAR WALL MOTION: NORMAL DOPPLER/COLOR FLOW: NORMAL COMMENTS: NORMAL 2D ECHOCARDIOGRAM WITH DOPPLER. NO WALL MOTION ABNORMALITY. NO EFFUSION. TECHNOLOGIST: Dana ERVIN
--- NOTE | 2020-12-09 10:00 | CON ---
Date of Consultation: 12/04/2020 Admitted on 12/03/[address] Fontanez's service. I saw the patient on 12/04/2020. Reason For Consultation: Chest pain. History Of Present Illness: Mr. Norman is a 75-year-old male, that came in mostly complaini ng of chest pain radiating to the back. It has been going on for about 3 days, pretty mostly in the lower back and in the epigastric region. No nausea, vomiting, diaphoresis, PND, orthopnea, pedal crispin ma, palpitation, or syncope. He denied any fever, chills, or cough. Past Medical History: Positive for hypertension. Allergies: NONE. Review of Systems: Negative. Social History: Negative. Family History: Noncontributory. Physical Examination: VITAL SIGNS: Stable. He was afebrile. HEENT: Negative. Neck: Supple without any lymphadenopathy, JVD, or bruit. DICTATION ENDS HERE. CARMELA/ESMER Voice ID: [id number] Report ID: [id number]
--- NOTE | 2020-12-09 10:12 | CON ---
Continuation: Physical Examination: Chest: Clear to auscultation and percussion. Cardiac: Regular rhythm and rate. No murmurs, gallops, or rubs. Abdomen: Benign. Extremities: No clubbing, cyanosis, or edema. Diagnostic Data: All within normal limit. Impression And Plan: Atypical chest pain, abdominal pain. The patient has a negative CT of the abdo men. He has been seen and cleared by Dr. Diop regarding any surgical intervention. I truly think this is a gastric or esophageal issue. He has an echocardiogram that was done and was normal. He h ad a normal CT dissection, normal x-ray, normal pelvis CT. I think he should be placed on proton pum p inhibitor and sent home. We will consider doing outpatient stress test on him just in case he is h aving any atypical symptoms. CARMELA/ESMER Voice ID: [id number] Report ID: [id number]
== END 2020-12-04 15:30 | disposition home or self-care (01) ==
LOC: ER 09:02 → ERHOLD 14:23 → 2ND 19:19
PROVIDERS: ADMIT Hospitalist; ATTEND Internal Medicine
DX: R07.9 Chest pain, unspecified (principal); M54.9 Dorsalgia, unspecified; G89.29 Other chronic pain; R10.31 Right lower quadrant pain; I10 Essential (primary) hypertension; Z20.822 Contact with and (suspected) exposure to COVID-19
CPT/HCPCS: 93005; 93306; 87040 ×2; 85025 ×2; 80048 ×2; 36415; 83735; 85610; 80061; 82565; 80076; 85652; 81003; 84484 ×3; 84145 ×2; 83880; 86140 ×2; 72192; 71275; 74175; 71045; 96375; 96374; 99285; U0003; Q9967; J1644 ×2; J2405 ×2

== ENCOUNTER 2021-09-20 12:06 | Inpatient (IN) | payer OTHER ==
--- OUTSIDE RECORDS SUMMARY | 2021-09-20 12:08 | XMS REPORT | Continuity of Care Document ---
:1945 Author Organization [facility] t Address [address] [place] [address] Care Team Providers Name Role Phone Awa Polanco Attending Clinician Unavailable Elmira-Daleo_A_FAHAD Attending Clinician Unavailable Elmira-Mbayo_A_AH Admitting Clinician Unavailable Payers Payer Name Policy Type Policy Number Effective Date Expiration Date S [facility] OF [place] - [id number] 2019 [employer] 00:00:00 (MEDICARE REPLACEMENT/ADVANT AGE - HMO) Problems This patient has no known problems. Allergies, Adverse Reactions, Alerts This patient has no known allergies or adverse reactions. Medications Ordered Filled Start Stop Current Ordering Indication Dosage Frequency Signature Comments Components Source Medication Medication Date Date Medication? Clinician (SIG) Name Name Tamsulosin Tamsulosin 2020- No Kesha [address] [facility] HCl HCl 9-11 09-11 [place] [facility] Procedures This patient has no known procedures. Encounters Start End Encounter Admission Attending Care Care Encounter Source Date/Time Date/Time Type Type Clinicians Facility Department ID 2021-07-31 [id number] [facility] 13:56:59 [id number] [facility] 2021-07-[facility] [id number] [facility] 11:38:36 [id number] [facility] 2021-07-31 [facility] [place] [id number] [facility] 11[facility]38:24 [id number] [facility] 2021-07-31 [facility] [id number] [facility] 11[facility]27:33 [id number] [facility] 2021-07-31 [facility] [id number] [facility] 11[facility]26:02 [id number] [facility] 2021-07-11 2021[facility]07-11 [facility] [id number] [facility] 2021-05-12 2021-05-12 ambulatory [facility] [id number] [facility] 2021-03-26 2021-03-26 [facility] [id number] [facility] 2020-11-15 2020-11-15 Outpatient [facility] [id number] [facility] 2020-08-16 2020-08-16 Outpatient [facility] [id number] [facility] 2020-05-18 2020-05-18 Outpatient [facility] [id number] [facility] 2020-04-03 2020-04-03 Outpatient [facility] [id number] [facility] 2020-03-16 2020-03-16 [facility] [id number] [facility] 10:51:00 10:51:00 t Specialty/U Bre kes - Specialty rology [facility] /Urology Clinic l Clinic Outpati ent Clinics 2020-02-23 2020-02-23 [facility] [id number] [facility] 05:40:00 05:40:00 t [facility] Out[facility] Clin[facility] 2020-02-21 2020-02-21 [facility] [id number] [facility] 11:40:00 11:40:00 t [facility] Medicine Outpati ent Clinics 2020-02-20 2020-02-20 [facility] [id number] [facility] 16:20:00 16:20:00 t [employer] [facility] Medicine Outpati ent Clinics 2020-02-16 2020-02-16 [facility] [id number] [facility] 13:00:00 13:00:00 t Specialty/U Bre kes - Specialty rology [facility] a /Urology Clinic l Clinic Outpati ent Clinics 2019-12-19 2019-12-19 [facility] [id number] [facility] 14:00:00 14:00:00 t [employer] [facility] Medicine Outpati ent Clinics 2019-09-15 2019-09-15 Outpatient Elmira-Mbayo VFP VFP [id number] [facility] 12:36:00 12:36:00 _A_AH [id number] Family Practic e 2019-09-15 2019-09-15 Outpatient Elmira-Mbayo VFP [facility]FP [id number] [facility] 12:36:00 12:36:00 _A_AH [id number] Family Practic e 2019-09-15 2019-09-15 Outpatient Elmira-Mbayo VFP VFP [id number] [facility] 12:36:00 12:36:00 _A_AH [id number] Family Practic e 2019-09-15 2019-09-15 Outpatient Elmira-Mbayo VFP VFP [id number] [facility] 12:36:00 12:36:00 _A_AH [id number] Family Practic e 2019-09-15 2019-09-15 Outpatient Elmira-Mbayo VFP VFP [id number] [facility] 12:36:00 12:36:00 _A_AH [id number] Family Practic e 2019-08-24 2019-08-24 Outpatient Elmira-Mbayo VFP VFP [id number] [facility] 07:12:00 07:12:00 _A_ [id number] Family Practic e Results This patient has no known results.
[2021-09-20 15:28] LABS: Urine Blood Negative (Negative); Urine Glucose Negative (Negative); Urine Protein Trace (Negative); Urine Specific Gravity 1.015 (1.005-1.030); Urine pH 5.5 (5.0-7.0)
[2021-09-20] MEDS ORDERED: ONDANSETRON 4 MG/2 ML VIAL ONE ×2 (15:39→18:47)
[2021-09-20] MEDS ORDERED: MORPHINE 4 MG/ML SYR ONE (15:39)
[2021-09-20] MEDS ORDERED: NA CHLORIDE 0.9% 500 ML ONE (15:39)
[2021-09-20] MEDS ORDERED: FAMOTIDINE 20 MG/2 ML VIAL IV ONE (15:40)
[2021-09-20 15:53] LABS: Urine Bacteria <20 /HPF (NONE SEEN); Urine RBC NONE SEEN /HPF (NONE SEEN)
[2021-09-20 16:13] LABS: Albumin 3.4 g/dL (3.4-5.0); Bilirubin Total 0.3 mg/dL (0.2-1.0); Potassium 3.7 mmol/L (3.5-5.1); Protein, Total 7.5 g/dL (6.4-8.2)
[2021-09-20 16:31] LABS: Absolute Lymphocytes (CBC) 1.2 K/uL (0.7-4.9); Hematocrit 33.7 % (39.6-49.0); Lymphocytes % 12.1 % (15.3-44.8); MPV 8.7 fL (7.6-11.3); RBC Red Blood Cell Count 3.97 M/uL (4.33-5.43)
--- NOTE | 2021-09-20 17:10 | RAD REPORT ---
EXAM DESCRIPTION: CTAbdomen Pelvis W Contrast - 09/20/2021 4:55 pm CLINICAL HISTORY: Abdominal pain. RLQ abdomen pain COMPARISON: Angio Aorta For Dissection dated 12/03/2020 TECHNIQUE: Biphasic CT imaging of the abdomen and pelvis was performed with 100 ml non-ionic IV cont rast. All CT scans are performed using dose optimization technique as appropriate and may include automated exposure control or mA/KV adjustment according to patient size. FINDINGS: The lung bases are clear. The liver, spleen, pancreas, adrenal glands and left kidney are within normal limits. 19 mm cystic le alton in the right kidney with calcification may represent a caliceal diverticulum. No bowel obstruction, free air, free fluid or abscess. There is marked dilatation of the appendix se en measuring up to 3.4 cm with surrounding inflammation. Sigmoid diverticulosis is present without di verticulitis. No evidence of significant lymphadenopathy. Prostate gland is very enlarged. Moderate to large fat containing inguinal hernias bilaterally. IMPRESSION: Acute appendicitis.
--- NOTE | 2021-09-20 17:35 | EDPHYS ---
Physician Documentation [facility] Name: Jose Norman Age: 76 yrs Sex: Male : 1945 Arrival Date: 09/20/2021 Time: 12:07 Bed 4 Private MD: Awa Polanco ED Physician Madhu Jerez HPI: 09/20 15:30 This 76 yrs old Male presents to ER via Ambulatory with complaints of cp Abdominal Pain. 15:30 The patient presents with abdominal pain right lower quadrant. Onset: The cp symptoms/episode began/occurred 5 day(s) ago, and became worse today. The symptoms radiate to lower back and right groin. Associated signs and symptoms: Pertinent positives: nausea, Pertinent negatives: chest pain, constipation, diarrhea, dysuria, fever, shortness of breath, testicular pain, vomiting. The symptoms are described as constant. Modifying factors: the symptoms are aggravated by movement, pressure. Severity of pain: in the emergency department the pain is unchanged despite home interventions. Historical: - Allergies: 12:40 No Known Allergies; ll1 - PMHx: 12:40 Hypertension; prostate problems; ll1 - PSHx: 12:40 back/pelvic/knee SX from fall; Cholecystectomy; ll1 - Immunization history:: Client reports receiving the 2nd dose of the Covid vaccine, Flu vaccine status is unknown. - Social history:: Smoking status: Patient denies any tobacco usage or history of. ROS: 15:33 Constitutional: Negative for body aches, chills, fever, poor PO intake. cp 15:33 Eyes: Negative for injury, pain, redness, and discharge. cp 15:33 ENT: Negative for drainage from ear(s), ear pain, sore throat, difficulty swallowing, difficulty handling secretions. 15:33 Cardiovascular: Negative for chest pain, edema, palpitations. 15:33 Respiratory: Negative for cough, shortness of breath, wheezing. 15:33 Abdomen/GI: Positive for abdominal pain, nausea, Negative for vomiting, diarrhea, constipation, black/tarry stool, rectal bleeding. 15:33 Neuro: Negative for altered mental status, headache, weakness. 15:33 All other systems are negative. Exam: 15:35 Constitutional: The patient appears in no acute distress, alert, awake, non-toxic, well cp developed, well nourished, uncomfortable. 15:35 Head/Face: Normocephalic, atraumatic. cp 15:35 Eyes: Periorbital structures: appear normal, Conjunctiva: normal, no exudate, no injection, Sclera: no appreciated abnormality, Lids and lashes: appear normal, bilaterally. 15:35 ENT: External ear(s): are unremarkable, Nose: is normal, Mouth: Lips: moist, Oral mucosa: moist, Posterior pharynx: Airway: no evidence of obstruction, patent. 15:35 Chest/axilla: Inspection: normal, Palpation: is normal, no crepitus, no tenderness. 15:35 Cardiovascular: Rate: normal, Rhythm: regular, Edema: is not appreciated, JVD: is not appreciated. 15:35 Respiratory: the patient does not display signs of respiratory distress, Respirations: normal, no use of accessory muscles, no retractions, labored breathing, is not present, Breath sounds: are clear throughout, no decreased breath sounds, no stridor, no wheezing. 15:35 Abdomen/GI: Inspection: obese Bowel sounds: active, all quadrants, Palpation: soft, in all quadrants, moderate abdominal tenderness, in the right lower quadrant, rebound tenderness, is not appreciated, voluntary guarding, is elicited in the right lower quadrant. 15:35 Back: CVA tenderness, is absent. 15:35 Skin: no rash present. 15:35 Neuro: Orientation: to person, place \\T\\ time. Mentation: is normal. Vital Signs: 12:36 BP 138 / 77; Pulse 91; Resp 17; Temp 99.3; Pulse Ox 96% on R/A; Height 5 ft. 10 in. ll1 (177.80 cm); Pain 7/10; 15:32 BP 118 / 69; Pulse 89; Resp 17; Pulse Ox 96% on R/A; vg1 15:34 Weight 81.65 kg; vg1 16:23 BP 132 / 74; Pulse 80; Resp 15; Pulse Ox 97% on R/A; vg1 19:53 BP 121 / 65; Pulse 81; Resp 18; Pulse Ox 98% on R/A; st1 22:48 BP 125 / 75; Pulse 70; Resp 16; Pulse Ox 96% on R/A; st1 15:34 Body Mass Index 25.83 (81.65 kg, 177.80 cm) vg1 MDM: 15:13 Patient medically screened. 17:20 Data reviewed: vital signs, nurses notes, lab test result(s), radiologic studies, CT cp scan, and as a result, I will admit patient. 17:20 Counseling: I had a detailed discussion with the patient and/or guardian regarding: the historical points, exam findings, and any diagnostic results supporting the discharge/admit diagnosis, lab results, radiology results, the need for further work-up and treatment in the hospital. 17:25 Physician consultation: Amado Diop MD was called at 17:20, was contacted at 17:20, regarding consult, patient's condition. 18:10 Physician consultation: Handy Reese was contacted at 18:10, regarding admission, to the medical/surgical unit. patient's condition, and will see patient in ED, shortly. 09/20 15:18 Order name: CBC with Diff; Complete Time: 17:05 09/20 17:05 Interpretation: Normal except: RBC 3.97; HGB 11.3; HCT 33.7; GRECIA% 76.9; LYM% 12.1. 09/20 15:18 Order name: CMP; Complete Time: 16:38 09/20 15:18 Order name: Lipase; Complete Time: 16:38 09/20 15:18 Order name: Urine Microscopic Only; Complete Time: 16:38 09/20 15:18 Order name: Lactate; Complete Time: 16:38 09/20 15:28 Order name: Urine Dipstick-Ancillary; Complete Time: 16:38 [facility] 09/20 15:25 Order name: CT Abd/Pelvis - IV Contrast Only; Complete Time: 17:15 09/20 17:16 Order name: SARS-COV-2 RT PCR (Document "Date of Onset" if Symptomatic) 09/20 17:16 Order name: SARS-COV-2 RT PCR [facility] 09/20 15:18 Order name: IV Saline Lock; Complete Time: 16:05 09/20 15:18 Order name: Labs collected and sent; Complete Time: 16:22 09/20 15:18 Order name: Urine Dipstick-Ancillary (obtain specimen); Complete Time: 15:29 09/20 16:16 Order name: Labs - recollect needed: recollec cbc per inside lab; Complete Time: 16:22 eb Administered Medications: 16:15 Drug: Zofran (Ondansetron) 4 mg Route: IVP; Site: right antecubital; vg1 16:15 Drug: NS 0.9% 500 ml Route: IV; Rate: 500 ml/hr; Site: right antecubital; vg1 17:15 Follow up: IV Status: Completed infusion; IV Intake: 500ml vg1 19:54 Follow up: Response: No adverse reaction st1 16:17 Drug: Pepcid (famotidine) 20 mg Route: IVP; Site: right antecubital; vg1 16:20 Drug: morphine 4 mg Route: IVP; Site: right antecubital; vg1 17:15 Follow up: Response: No adverse reaction; No change in condition vg1 18:02 Drug: Dilaudid (HYDROmorphone) 1 mg Route: IVP; Site: right antecubital; vg1 18:51 Follow up: Response: No adverse reaction; Pain is decreased vg1 19:54 Follow up: Response: No adverse reaction; Pain is decreased st1 18:11 Drug: Zosyn (piperacillin-tazobactam) 3.375 grams Route: IVPB; Infused Over: 60 mins; vg1 Site: right antecubital; 19:18 Follow up: Response: No adverse reaction; IV Status: Completed infusion; IV Intake: ll3 100ml 18:45 Drug: Zofran (Ondansetron) 4 mg Route: IVP; Site: right antecubital; vg1 19:55 Follow up: Response: No adverse reaction; Nausea is decreased st1 Disposition Summary: 09/20/21 17:34 Hospitalization Ordered Hospitalization Status: Inpatient Admission cp Location: Telemetry/MedSurg (Inpatient) cp Condition: Stable cp Problem: new cp Symptoms: have improved cp Bed/Room Type: Standard cp Provider: Thony Bess(09/20/21 18:13) cp Room Assignment: [facility](09/20/21 22:18) Diagnosis - Other acute appendicitis cp Forms: - Medication Reconciliation Form cp - SBAR form cp Signatures: Dispatcher [employer] EDPanda Sanchez PA PA cp Garcia, Cindy RN RN Lisa Velasco Victoria RN RN 1 Maral Boyd RN RN ll1 Luis Kilpatrick RN ll3 Muna Carballo RN st1 Corrections: (The following items were deleted from the chart) 12:45 12:40 PMHx: back/pelvic/knee SX from fall; ll1 ll1 18:13 17:34 Handy Reese cp cp 22:18 17:34 cp cg
--- NOTE | 2021-09-20 17:35 | ER ---
Nurse's Notes [facility] Name: Jose Norman Age: 76 yrs Sex: Male : 1945 Arrival Date: 09/20/2021 Time: 12:07 Bed 4 Private MD: Awa Polanco Diagnosis: Other acute appendicitis Presentation: 09/20 12:36 Chief complaint: Patient states: RLQ abd pain with nausea for 5 days. No fever. ll1 Coronavirus screen: Vaccine status: Patient reports receiving the 2nd dose of the covid vaccine. Client denies travel out of the [place] in the last 14 days. nausea. Ebola Screen: Patient denies travel to an Ebola-affected area in the 21 days before illness onset. Initial Sepsis Screen: Does the patient meet any 2 criteria? HR > 90 bpm. No. Patient's initial sepsis screen is negative. Does the patient have a suspected source of infection? Yes: Acute abdominal pain. Risk Assessment: Do you want to hurt yourself or someone else? Patient reports no desire to harm self or others. Onset of symptoms was September 15, 2021. 12:36 Method Of Arrival: Ambulatory ll1 12:36 Acuity: MICHELLE 3 ll1 Historical: - Allergies: 12:40 No Known Allergies; ll1 - PMHx: 12:40 Hypertension; prostate problems; ll1 - PSHx: 12:40 back/pelvic/knee SX from fall; Cholecystectomy; ll1 - Immunization history:: Client reports receiving the 2nd dose of the Covid vaccine, Flu vaccine status is unknown. - Social history:: Smoking status: Patient denies any tobacco usage or history of. Screenin:29 Abuse screen: Denies threats or abuse. Nutritional screening: No deficits noted. vg1 Tuberculosis screening: No symptoms or risk factors identified. Fall Risk No fall in past 12 months (0 pts). No secondary diagnosis (0 pts). IV access (20 points). Ambulatory Aid- None/Bed Rest/Nurse Assist (0 pts). Gait- Normal/Bed Rest/Wheelchair (0 pts) Mental Status- Oriented to own ability (0 pts). Total Kapadia Fall Scale indicates No Risk (0-24 pts). Assessment: 15:29 General: Appears in no apparent distress. comfortable, Behavior is calm, cooperative. vg1 Pain: Complains of pain in epigastric area and right lower quadrant Pain currently is 8 out of 10 on a pain scale. Pain began x 7 days. Neuro: Level of Consciousness is awake, alert, obeys commands, Oriented to person, place, time, situation. Cardiovascular: Patient's skin is warm and dry. Respiratory: Airway is patent Respiratory effort is even, unlabored. GI: Abdomen is round non-distended, Last BM was September 19, 2021. Bowel sounds present X 4 quads. Abdomen is tender to palpation in epigastric area and right lower quadrant Reports nausea, Patient currently denies diarrhea, vomiting. : No signs and/or symptoms were reported regarding the genitourinary system. EENT: No signs and/or symptoms were reported regarding the EENT system. Derm: Skin is intact, is healthy with good turgor. Musculoskeletal: Circulation, motion, and sensation intact. 16:23 Reassessment: Patient appears in no apparent distress at this time. No changes from vg1 previously documented assessment. Patient and/or family updated on plan of care and expected duration. Pain level reassessed. Patient is alert, oriented x 3, equal unlabored respirations, skin warm/dry/pink. 17:30 Reassessment: Patient appears in no apparent distress at this time. No changes from vg1 previously documented assessment. Patient and/or family updated on plan of care and expected duration. Pain level reassessed. Patient is alert, oriented x 3, equal unlabored respirations, skin warm/dry/pink. 18:30 Reassessment: pt c/o nausea; provider notified. vg1 Vital Signs: 12:36 BP 138 / 77; Pulse 91; Resp 17; Temp 99.3; Pulse Ox 96% on R/A; Height 5 ft. 10 in. ll1 (177.80 cm); Pain 7/10; 15:32 BP 118 / 69; Pulse 89; Resp 17; Pulse Ox 96% on R/A; vg1 15:34 Weight 81.65 kg; vg1 16:23 BP 132 / 74; Pulse 80; Resp 15; Pulse Ox 97% on R/A; vg1 19:53 BP 121 / 65; Pulse 81; Resp 18; Pulse Ox 98% on R/A; st1 22:48 BP 125 / 75; Pulse 70; Resp 16; Pulse Ox 96% on R/A; st1 15:34 Body Mass Index 25.83 (81.65 kg, 177.80 cm) vg1 ED Course: 12:07 Patient arrived in ED. as 12:07 Awa Polanco MD is Private Physician. as 12:40 Triage completed. ll1 12:45 Arm band placed on. ll1 14:57 Patient placed in an exam room, on a stretcher. ll1 15:00 Angélica Norman, RN is Primary Nurse. vg1 15:08 Panda Redmond PA is PHCP. cp 15:08 Madhu Jerez MD is Attending Physician. cp 15:29 Patient has correct armband on for positive identification. Placed in gown. Bed in low vg1 position. Call light in reach. Side rails up X 1. Adult w/ patient. 15:29 No provider procedures requiring assistance completed. vg1 16:04 Inserted saline lock: 20 gauge in right antecubital area, using aseptic technique. dh3 16:54 CT Abd/Pelvis - IV Contrast Only In Process Unspecified. EDMS 17:33 Handy Reese is Hospitalizing Provider. cp 18:12 COVID swab sent to lab. vg1 18:13 Hospitalizing Provider role handed off by Handy Reese cp 18:13 Thony Bess MD is Hospitalizing Provider. cp 19:11 Primary Nurse role handed off by Angélica Norman RN mw2 19:53 Muna Carballo RN is Primary Nurse. st1 22:56 Patient admitted, IV remains in place. st1 Administered Medications: 16:15 Drug: Zofran (Ondansetron) 4 mg Route: IVP; Site: right antecubital; vg1 16:15 Drug: NS 0.9% 500 ml Route: IV; Rate: 500 ml/hr; Site: right antecubital; vg1 17:15 Follow up: IV Status: Completed infusion; IV Intake: 500ml vg1 19:54 Follow up: Response: No adverse reaction st1 16:17 Drug: Pepcid (famotidine) 20 mg Route: IVP; Site: right antecubital; vg1 16:20 Drug: morphine 4 mg Route: IVP; Site: right antecubital; vg1 17:15 Follow up: Response: No adverse reaction; No change in condition vg1 18:02 Drug: Dilaudid (HYDROmorphone) 1 mg Route: IVP; Site: right antecubital; vg1 18:51 Follow up: Response: No adverse reaction; Pain is decreased vg1 19:54 Follow up: Response: No adverse reaction; Pain is decreased st1 18:11 Drug: Zosyn (piperacillin-tazobactam) 3.375 grams Route: IVPB; Infused Over: 60 mins; vg1 Site: right antecubital; 19:18 Follow up: Response: No adverse reaction; IV Status: Completed infusion; IV Intake: ll3 100ml 18:45 Drug: Zofran (Ondansetron) 4 mg Route: IVP; Site: right antecubital; vg1 19:55 Follow up: Response: No adverse reaction; Nausea is decreased st1 Intake: 17:15 IV: 500ml; Total: 500ml. vg1 19:18 IV: 100ml; Total: 600ml. ll3 Outcome: 17:34 Decision to Hospitalize by Provider. cp 22:55 Admitted to Tele accompanied by nurse, via wheelchair, room 208, with chart, Report st1 called to CARLOS Tijerina; all questions and concerns addressed. 22:55 Condition: good 22:55 Instructed on the need for admit. 09/21 01:12 Patient left the ED. bb Signatures: Dispatcher [employer] Nicole Godoy Brenda, RN RN bb Panda Redmond PA PA cp Herrera, Deanna 3 Lavell Badillo 2 Angélica Norman RN RN vg1 Maral Boyd RN RN ll1 Luis Kilpatrick RN RN ll3 Muna Carballo, CARLOS RN st1 Corrections: (The following items were deleted from the chart) 09/20 12:45 12:40 PMHx: back/pelvic/knee SX from fall; ll1 ll1
[2021-09-20] MEDS ORDERED: HYDROMORPHONE HCL 2 MG/ML inj ONE (17:59)
[2021-09-20] MEDS ORDERED: PIPERACIL/TAZO 3.375 GM VIAL IV ONE (18:00)
[2021-09-20] MEDS ORDERED: NA CHLORIDE 0.9% 100 ML IV ONE (18:00)
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
[2021-09-20] MEDS ORDERED: ONDANSETRON 4 MG/2 ML VIAL IV PRN (22:53)
[2021-09-21] MEDS: PIPER TAZO 3.375 GM in NA CHLORIDE 0.9% 100 ML IV SCH ×3 (01:36→15:58)
[2021-09-21] MEDS: D5 0.45 NS 1,000 ML IV SCH ×2 (01:37→13:14)
[2021-09-21 03:55] VITALS: BMI 28.5
--- NOTE | 2021-09-21 06:13 | P.PN ---
Date of Service: 09/21/21 Subjective: Still some RLQ pain, pain medication is helping Is getting ready to be taken to the OR this morning Denies shortness of breath, leg denies chest pain ROS: 10 point ROS as noted above, otherwise negative Physical exam GEN: Alert, oriented, slightly uncomfortable appearing HEENT: Normal conjunctiva, sclera anicteric CV: Regular rate and rhythm, no edema Pulm: Nonlabored respirations on room air ABD: Soft, RLQ tenderness to palpation Neuro: Normal speech, normal affect Problem List Acute appendicitis Hypertension BPH N.p.o., IV Zosyn Pain medication as needed, antiemetics General surgery consulted, patient going to the OR few minutes for appendectomy Normal echo and stress test 1 year ago, patient otherwise appears stable, medically optimized for surgery Confirm home medications, will restart antihypertensives as appropriate in the postoperative period VTE: SCDs for now Code: Full Dispo: Home, pending surgery and findings Time Spent Managing Pts Care (In Minutes): 35
[2021-09-21 06:50] LABS: Absolute Lymphocytes (CBC) 0.9 K/uL (0.7-4.9); Hematocrit 33.1 % (39.6-49.0); Lymphocytes % 11.6 % (15.3-44.8); MPV 8.8 fL (7.6-11.3); RBC Red Blood Cell Count 3.88 M/uL (4.33-5.43)
[2021-09-21 07:08] LABS: Albumin 2.9 g/dL (3.4-5.0); Bilirubin Total 0.3 mg/dL (0.2-1.0); Potassium 3.6 mmol/L (3.5-5.1); Protein, Total 6.8 g/dL (6.4-8.2)
[2021-09-21] MEDS ORDERED: Ringers Lactate 1,000 ML IV ONE (08:35)
[2021-09-21] MEDS ORDERED: KCL 20 MEQ/100 mL IVPB 20 MEQ/100 ML BAG IV SCH (09:00)
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
[2021-09-21] MEDS ORDERED: LIDOCAINE 1% MPF 2 ML AMPULE ONE (10:04)
[2021-09-21] MEDS ORDERED: propofoL 200 MG/20 ML VIAL IV ONE (10:04)
[2021-09-21] MEDS ORDERED: ROCURONIUM 50 MG/5 ML VIAL IV ONE (10:04)
[2021-09-21] MEDS ORDERED: FENTANYL CITR 100 MCG/2 ML ONE ×2 (10:04→11:06)
[2021-09-21] MEDS ORDERED: LIDOCAINE 1% MPF 5 ML VIAL ONE (10:04)
[2021-09-21] MEDS ORDERED: KETOROLAC 30 MG/ML INJ ONE (10:43)
[2021-09-21] MEDS ORDERED: dexAMETHasone 10 MG/ML VIAL ONE (10:43)
[2021-09-21] MEDS ORDERED: ONDANSETRON 4 MG/2 ML VIAL ONE ×2 (10:53→11:00)
[2021-09-21] MEDS ORDERED: EPHEDRINE SULF 50 MG/ML VIAL ONE (10:54)
[2021-09-21] MEDS ORDERED: GLYCOPYRROLATE 0.2 MG/ML SYR ONE (11:00)
[2021-09-21] MEDS ORDERED: LABETALOL 20 MG/4ML SYRINGE IV ONE (12:00)
[2021-09-21] MEDS: MORPHINE 2 MG/ML SYR IV PRN ×3 (13:14→21:46)
--- NOTE | 2021-09-21 15:19 | P.OP ---
Preoperative diagnosis: Acute abdomen with appendicitis acute abdomen with appendiceal abscess Primary procedure: Laparoscopy Secondary procedure: Open appendectomy with drainage of intra-abdominal abscess Anesthesia: General Estimated blood loss: Less than 15 cc Specimen: Appendix and abscess tissue Operative Technique: The patient brought the operating room and placed supine on the table. After the induction of adequate general endotracheal anesthesia, there the abdomen was prepped with a DuraPrep solution, and he was draped in the usual aseptic manner. A subumbilical incision was made. This was brought down through the skin and subcutaneous tissue. The Visiport was now used to enter the peritoneal cavity and created pneumoperitoneum to approximately 12 mmHg. Under direct vision a 5 mm trocar was placed in the lower abdomen. We went to the left side as the preperitoneal fat that area was thickened and the patient does have chronic prostate problems and we try to avoid his bladder. Another 5 mm trocar was placed in the right upper quadrant. We were now able to view the midportion of the abdomen just above the right lower quadrant. We could see the cecum itself was markedly adherent to the right lateral sidewall of the abdomen. This was hard jero firm adhesion. There was also omentum laying on top of this. I suspect that there is a large abscess beneath all this and the chances of doing this laparoscopically were minimal. Hence the decision was made to convert to an open procedure. A right lower quadrant skin incision was made after feeling on the anterior abdominal wall with the scope in the abdomen the ideal site for our incision. This was brought down through the skin and subcutaneous tissue. The external oblique was now open. The muscles underneath were divided. The posterior sheath was grasped elevated and sharply incised to allow access to the peritoneal cavity. Immediately below this was the area of abscess on the distal portion of the cecum. We were able to gently dissect this up and out of the right lateral sidewall and brim of the true pelvis. This inflammatory mass extended down along the testicular vessels towards the posterior portion of his hernia sac. The mass was adherent on top of this. It was carefully dissected away. However due to the marked amount of adhesion this was divided using 2 hemostats sharply incised and the vascular control done with chromic ties. This inflammatory mass was now dissected off the remaining portion of the posterior wall. It was elevated and we were able to gently finger fracture through the i nflamed fat to isolate the appendiceal remains. This was gently dissected away from the cecum and we could see just at the base of the cecum at its the appendix itself there was a blowout in this area leaving a hole approximately 1.5 cm in the base of the cecum. This was closed with a running suture of chromic. Lembert sutures of silk were used to approximate the tissue. The appendix obviously been handed off the field as a separate specimen. The area was now irrigated with a saline solution. A Dakota-Emanuel drain was placed into this area to drain it and was brought out through separate stab wound incision. Adequate hemostasis having been ensured, the posterior sheath was run with a oh looped chromic. The muscles were approximated using interrupted sutures of PDS. The subcutaneous tissue was irrigated with a saline solution, approximated with 1 suture of chromic, and isaiah were loosely applied to the skin. In between the isaiah we placed iodoform gauze to keep the place open and draining in the postoperative period. At the end of the procedure the patient was in a stable condition was sent to the recovery room. The trocar sites had been closed also with isaiah. Dr pradhan were applied. Complications: None Drain(s): YOBANI drain Transferred to: Recovery Room Condition: Good
[2021-09-21] MEDS ORDERED: POTASSIUM CL SA 10 MEQ TAB PO ONE (17:00)
[2021-09-22] MEDS: PIPER TAZO 3.375 GM in NA CHLORIDE 0.9% 100 ML IV SCH ×3 (00:07→17:26)
[2021-09-22] MEDS: D5 0.45 NS 1,000 ML IV SCH ×2 (00:08→08:56)
[2021-09-22] MEDS: MORPHINE 2 MG/ML SYR IV PRN ×4 (02:22→21:34)
--- NOTE | 2021-09-22 06:14 | P.PN ---
Date of Service: 09/22/21 Subjective: Feeling better than yesterday No nausea/vomiting, no flatus since surgery Continues with some abdominal discomfort, reports generalized Tolerated some food yesterday, felt like he had some gas pains ROS: 10 point ROS as noted above, otherwise negative Physical exam GEN: Alert, oriented, NAD HEENT: Normal conjunctiva, sclera anicteric CV: Regular rate and rhythm, no edema Pulm: Nonlabored respirations on room air ABD: Soft, mild diffuse tenderness, YOBANI drain: Minimal serosanguineous output Neuro: Normal speech, normal affect Problem List Acute appendicitis with abscess, s/p open appendectomy (09/21) Hypertension BPH Continue antibiotics General surgery advance patient to regular diet Pain medication as needed, antiemetics Monitor vitals and blood work Restart antihypertensives once needed Abscess noted on surgery, required open procedure, YOBANI drain placed Will need IV antibiotics and observation for another 1-2 days most likely VTE: SCDs for now Code: Full Dispo: Home, 1-2 days Time Spent Managing Pts Care (In Minutes): 35
[2021-09-22 06:27] LABS: Hematocrit 34.8 % (39.6-49.0); MPV 8.5 fL (7.6-11.3); RBC Red Blood Cell Count 4.08 M/uL (4.33-5.43)
[2021-09-22 06:49] LABS: Albumin 2.9 g/dL (3.4-5.0); Bilirubin Total 0.5 mg/dL (0.2-1.0); Magnesium 2.2 mg/dL (1.8-2.4); Potassium 3.7 mmol/L (3.5-5.1); Protein, Total 6.8 g/dL (6.4-8.2)
[2021-09-22] MEDS ORDERED: D5 0.45 NS 1,000 ML IV SCH (12:30)
[2021-09-22] MEDS: CODEINE 30MG/APAP 300MG TAB PO PRN (17:26)
[2021-09-23] MEDS: PIPER TAZO 3.375 GM in NA CHLORIDE 0.9% 100 ML IV SCH ×3 (00:03→16:00)
[2021-09-23] MEDS: MORPHINE 2 MG/ML SYR IV PRN ×3 (04:20→16:00)
--- NOTE | 2021-09-23 06:06 | P.PN ---
Date of Service: 09/23/21 Subjective: ongoing pain/discomfort, but improving tolerating diet ambulating somewhat, +flatus, no BM ROS: 10 point ROS as noted above, otherwise negative Physical exam GEN: Alert, oriented, slightly uncomfortable appearing HEENT: Normal conjunctiva, sclera anicteric CV: Regular rate and rhythm, no edema Pulm: Nonlabored respirations on room air ABD: Soft, mild diffuse tenderness, YOBANI drain: Minimal serosanguineous output Neuro: Normal speech, normal affect Problem List Acute appendicitis with abscess, s/p open appendectomy (09/21) Hypertension BPH Continue antibiotics General surgery advanced patient to regular diet, tolerating Pain medication as needed, antiemetics Monitor vitals and blood work Restart antihypertensives once needed Abscess noted on surgery, required open procedure, YOBANI drain placed Will need IV antibiotics and observation for another ~1 day or so Code: Full Dispo: Home, likely tomorrow Time Spent Managing Pts Care (In Minutes): 35
--- NOTE | 2021-09-23 15:00 | P.PN ---
Date of Service: 09/23/21 S: Patient feels well today, still having some soreness of the right lower quadrant. Appetite is coming back, did pass some gas today but no bowel movement. Says he has been having some cramping discomfort. O: Vital signs remained stable, small amount out through the YOBANI drain. A: Surgically stable, seems to be improving. P: Encourage patient to ambulate. Patient has good effort on incentive spirometer. Also asking about seeing a urologist that we will set this up as an outpatient. Anticipate 1 more day of IV antibiotics and discharged home in the a.m.
[2021-09-23] MEDS: CODEINE 30MG/APAP 300MG TAB PO PRN (19:55)
[2021-09-24] MEDS: PIPER TAZO 3.375 GM in NA CHLORIDE 0.9% 100 ML IV SCH ×2 (00:19→09:04)
[2021-09-24] MEDS: CODEINE 30MG/APAP 300MG TAB PO PRN (04:46)
[2021-09-24 06:00] LABS: Absolute Lymphocytes (CBC) 1.1 K/uL (0.7-4.9); Hematocrit 35.7 % (39.6-49.0); MPV 8.2 fL (7.6-11.3); RBC Red Blood Cell Count 4.17 M/uL (4.33-5.43)
[2021-09-24] MEDS: MORPHINE 2 MG/ML SYR IV PRN (09:03)
[2021-09-24 12:10] VITALS: TEMP 97.5
--- NOTE | 2021-09-24 13:42 | P.PN ---
Date of Service: 09/24/21 S: Patient's pain appears to be well controlled. Doing good on the oral medication. Has been up ambulating O: Incisions are clean, minimal drainage after YOBANI drain. Iodoform gauze removed from incision. Dakota-Emanuel drain was pulled. A: Surgically stable P: Patient is stable from a surgical point of view. Has been up ambulating. Pain appears to be controlled on oral medication. Drains are out and incision looks good. He will be discharged today, he will follow-up with me in my office. I will keep him on oral pain medication as well as antibiotics. He is comfortable with this, and wants to go home.
--- NOTE | 2021-09-24 16:06 | P.DS ---
Admission Date: 09/21/21 Discharge Date: 09/24/21 Disposition: ROUTINE DISCHARGE Discharge Condition: FAIR Brief History of Present Illness: 76-year-old male with history of hypertension, BPH presented to the emergency department for 5 days of right lower quadrant abdominal pain. Patient was evaluated in the emergency department and found to have borderline leukocytosis. CT abdomen pelvis demonstrated acute appendicitis. Case was discussed with general surgery by emergency department provider who recommended admission for appendectomy. Patient admitted to the hospitalist service. Hospital Course: Diagnosis Acute appendicitis with abscess, s/p open appendectomy (09/21) Hypertension BPH Patient admitted to the medical floor and started on IV antibiotics. Seen by general surgery-Dr. Diop who performed open appendectomy with drainage of abscess. YOBANI drain placed Patient monitored postop with no events. He tolerated diet, had flatus Patient seen and evaluated by Dr. Diop today and deemed stable for discharge. Vital Signs/Physical Exam: Temp Pulse Resp BP Pulse Ox 97.5 F 70 12 134/70 91 09/24/21 12:00 09/24/21 12:00 09/24/21 12:00 09/24/21 12:00 09/24/21 12:00 General: Alert, In no apparent distress, Oriented x3 HEENT: Normocephalic, Mucous membr. moist/pink Neck: Supple, JVD not distended Respiratory: Clear to auscultation bilaterally, Normal air movement Cardiovascular: No edema, Regular rate/rhythm, Normal S1 S2, No murmurs Gastrointestinal: Normal bowel sounds, Soft and benign, Non-distended, Other (Dressed right lower quadrant surgical wound) Musculoskeletal: No swelling Integumentary: No rashes, No cyanosis Neurological: Normal strength at 5/5 x4 extr Laboratory Data at Discharge: WBC 8.00 K/uL (4.3-10.9) D 09/24/21 05:35 Hgb 11.9 g/dL (13.6-17.9) L 09/24/21 05:35 Hct 35.7 % (39.6-49.0) L 09/24/21 05:35 Plt Count 256 K/uL (152-406) 09/24/21 05:35 Sodium 137 mmol/L (136-145) 09/22/21 05:45 Potassium 3.7 mmol/L (3.5-5.1) 09/22/21 05:45 BUN 8 mg/dL (7-18) 09/22/21 05:45 Creatinine 0.86 mg/dL (0.55-1.3) 09/22/21 05:45 Glucose 153 mg/dL (74-106) H 09/22/21 05:45 Magnesium 2.2 mg/dL (1.8-2.4) 09/22/21 05:45 Total Bilirubin 0.5 mg/dL (0.2-1.0) 09/22/21 05:45 AST 39 U/L (15-37) H 09/22/21 05:45 ALT 72 U/L (12-78) 09/22/21 05:45 Alkaline Phosphatase 85 U/L (45-117) 09/22/21 05:45 Lipase 251 U/L (73-393) 09/20/21 15:44 Home Medications: Losartan Potassium 100 mg PO DAILY 12/28/18 Prazosin HCl 2 mg PO DAILY 12/03/20 Tamsulosin [Flomax*] 0.4 mg PO BID 12/03/20 Aspirin [Aspirin EC] 81 mg PO DAILY #30 tablet. 12/04/20 Metoprolol Succinate 100 mg PO DAILY 09/21/21 Diet: AHA Activity: Ad priyanka Followup: Amado Diop MD [ACTIVE - CAN ADMIT] - 1 Week (Please call the office for appointment.) NONE,NONE [Primary Care Provider] - Time spent managing pt's care (in minutes): 34
[2021-09-24 16:11] VITALS: BP 149/75
[2021-09-24 17:03] VITALS: O2SAT 91
== END 2021-09-24 16:52 | disposition home or self-care (01) | DRG 340 ==
LOC: ER 12:06 → INTOOBSV 19:14 → ERHOLD 19:14 → 2ND 22:34 → OBSVTOIN 09-21 14:37
PROVIDERS: ADMIT Hospitalist; ATTEND Internal Medicine
PROC: 0WJG4ZZ Inspection of Peritoneal Cavity, Percutaneous Endoscopic Approach (ICD-10-PCS; 2021-09-21)
PROC: 0DTJ0ZZ Resection of Appendix, Open Approach (ICD-10-PCS; principal; 2021-09-21 10:00)
DX: K35.33 Acute appendicitis with perforation, localized peritonitis, and gangrene, with abscess (principal); I10 Essential (primary) hypertension; N40.0 Benign prostatic hyperplasia without lower urinary tract symptoms; E11.9 Type 2 diabetes mellitus without complications; I25.10 Atherosclerotic heart disease of native coronary artery without angina pectoris; D72.829 Elevated white blood cell count, unspecified; Z90.49 Acquired absence of other specified parts of digestive tract; Z79.82 Long term (current) use of aspirin; Z79.899 Other long term (current) drug therapy; Z53.31 Laparoscopic surgical procedure converted to open procedure; Z20.822 Contact with and (suspected) exposure to COVID-19
CPT/HCPCS: 36415; 74177; 80053; 81003; 81015; 83605; 83690; 83735; 85025; 85027; 88304; 94010; 96361; 96365; 96375; 99285; G0378; J1100; J1170; J2270; J2405; J2543; J2704; J3010; J3480; J7040; J7120; J7799; Q9967; U0003

== ENCOUNTER 2022-09-23 06:34 | Day surgery (SDC) | payer OTHER ==
[2022-08-12 14:03] LABS: Absolute Lymphocytes (CBC) 1.9 K/uL (0.7-4.9); Hematocrit 37.2 % (39.6-49.0); Lymphocytes % 34.6 % (15.3-44.8); MCV 84.6 fL (80-100); MPV 8.7 fL (7.6-11.3)
--- NOTE | 2022-08-12 14:16 | RAD REPORT ---
EXAM DESCRIPTION: RAD - Chest Pa And Lat (2 Views) - 08/12/2022 1:48 pm CLINICAL HISTORY: pre op for srugery Chest pain. COMPARISON: Chest Single View dated 12/03/2020; CHEST PA AND LAT 2 VIEW dated 08/14/2015 TECHNIQUE: PA and lateral views of the chest were obtained. FINDINGS: The lungs are hyperexpanded compatible with COPD. The heart is upper limit of normal in si ze. No fracture or aggressive bony process. IMPRESSION: COPD without acute process identified. The USPSTF recommends annual screening for lung cancer with low-dose CT (LDCT) in adults aged 50 to 8 0 years who have a 20 pack-year smoking history and currently smoke or have quit within the past 15 y ears.
[2022-08-12 14:17] LABS: Protime INR 1.1
[2022-08-12 14:33] LABS: Potassium 3.9 mmol/L (3.5-5.1)
--- NOTE | 2022-08-14 08:01 | EKG ---
Test Date: 2022-08-12 Test Time: 13:15:31 Mechanical Design Engineer Products: DENI MEASUREMENT RESULTS: Intervals: Rate: 53 PA: 236 QRSD: 84 QT: 442 QTc: 414 Model: P: 20 PA: 236 QRS: 21 T: 22 INTERPRETIVE STATEMENTS: Sinus bradycardia with sinus arrhythmia with 1st degree AV block Otherwise normal ECG Compared to ECG 12/03/2020 09:20:15 Sinus rhythm no longer present Electronically Signed On 08-14-22 07:56:01 [employer] SALES REPRESENTATIVE by Shane Anne
[2022-09-23] MEDS ORDERED: Ringers Lactate 1,000 ML IV ONE (06:49)
[2022-09-23] MEDS ORDERED: CEFAZOLIN SODIUM 2 GM/VIAL ONE (06:49)
[2022-09-23] MEDS ORDERED: ROCURONIUM 50 MG/5 ML VIAL IV ONE (07:24)
[2022-09-23] MEDS ORDERED: FENTANYL CITR 100 MCG/2 ML ONE ×2 (07:24→07:46)
[2022-09-23] MEDS ORDERED: MIDAZOLAM HCL 2 MG/2 ML INJ ONE (07:24)
[2022-09-23] MEDS ORDERED: ONDANSETRON 4 MG/2 ML VIAL ONE ×2 (07:24→07:46)
[2022-09-23] MEDS ORDERED: LIDOCAINE 1% MPF 5 ML VIAL ONE (07:24)
[2022-09-23] MEDS ORDERED: propofoL 200 MG/20 ML VIAL IV ONE ×2 (07:24→07:46)
[2022-09-23] MEDS ORDERED: SUCCINYLCHOLINE 20 MG/ML (10 ML) IV ONE (07:28)
[2022-09-23] MEDS ORDERED: LIDOCAINE 2% MPF 5 ML VIAL ONE (07:46)
[2022-09-23] MEDS ORDERED: KETOROLAC 30 MG/ML INJ ONE (07:46)
[2022-09-23] MEDS ORDERED: PHENAZOPYRIDINE 100MG TAB PO ONE ×2 (08:38→10:07)
[2022-09-23] MEDS ORDERED: CODEINE 30MG/APAP 300MG TAB PO PRN (08:38)
[2022-09-23 09:37] VITALS: O2SAT 97
[2022-09-23] MEDS ORDERED: CODEINE 30MG/APAP 300MG TAB ONE (10:07)
[2022-09-23 10:18] VITALS: BP 146/73; TEMP 97.2
--- NOTE | 2022-09-23 14:02 | OP ---
Surgeon: NICOLE PAZ Preoperative Diagnosis: Benign prostatic hypertrophy with lower urinary tract obstruction and sympto ms. Postoperative Diagnoses: 1.Benign prostatic hypertrophy with lower urinary tract obstruction and symptoms. 2.Extended prostatic urethral length. Principal Procedure: Prostatic urethral lift/UroLift with 9 implants used and 8 successfully placed. Indication For Procedure: Mr. Norman is a 77-year-old gentleman, who presented to the [facility] with persistent obstructive urinary symptoms despite combination of medical therapy with both Flomax and finasteride. He was counseled on options for management of his obstructive uropathy and elected to proceed with the UroLift. Procedure In Detail: The patient was consented in the preoperative holding area before being transfe rred to operative suite where general anesthesia was induced. He was given Ancef 2 g IV antimicrobia l prophylaxis and pneumo boots were provided for DVT prophylaxis. He was placed in the lithotomy pos ition, padded and secured to the table appropriately and his genitalia was prepped with Hibiclens and draped in standard fashion. The case was begun using the 20-Sudanese UroLift visual obturator to haily erse the urethra and into the bladder with ease. Of note, there was significant elevation of the henry dder neck/median bar without significant intravesical projection of the median lobe. The bladder was also moderately trabeculated throughout. As a result, I decompressed his bladder fluid and urine, a nd then switched the visual obturator for a UroLift delivery device. The first implant was targeted high anterolaterally at about the 1 o'clock position, sweeping the anterior tissue laterally approxim ately 2 cm distal to the bladder neck. About 10 degrees of compression was obtained and a first pull of the trigger was performed delivering the needle through the prostate. An additional 10 degrees o f compression was then performed to ensure complete delivery of the needle all the way through to the capsular surface of the prostate. A second pole of the trigger then deployed the capsular tab and b vania to partially retract the needle. A third pole of the trigger did completely retract the needle and further tensioned the suture. I then advanced the scope back toward the midline and approximatel y about 2-3 mm until the monofilament was centered in the delivery bay, and I pulled the trigger 4th time deploying the urethral end piece and tailoring the suture in order to achieve optimal compressio n. The urethral end piece ended up nicely and situated within the prostate tissue and did create a s lit-like opening of the bladder neck anterolaterally at that location. As a result, I placed a simil ar implant at this time on the right side at about the 11 o'clock position, which confirmed the openi ng at the bladder neck. I then placed a third implant in the region of the verumontanum at the apex of the prostate on the left, but unfortunately, the 4th pole of the trigger resulted in cutting of th e suture without deploying the end piece. As a result, I had to place another implant in that locati on, the 4th of 3 implants successfully placed. A 5th implant was then used to place the 4th implant successfully this time at the apex at the level of the verumontanum on the right. I then surveyed th e channel created and there was still significant interdigitating tissue within the mid zone of the p rostate from apex to the bladder neck. As a result, a 6th and 7th implant were used to place the 5th and 6th implant in the lateral lobar tissue layers of the bladder neck initially on the left and the right side. Survey of the channel created, did reveal mild persistent residual lateral lobar hypert rophy and a slightly circuitous anterior channel created; so I placed an additional implant on the ri ght side between the apical implant and the mid urethral implant placed on that side. Survey of the channel created using a visual obturator revealed some intraluminally projecting tissue this time fro m the left side of the prostate in that apical mid gland tissue; so a 9th and final implant was used in order to place the 8th successful implant in the apical mid tissue on the left side of the prostat e anteriorly. This created a continuous and straight anterior channel from the verumontanum into the bladder. There was mild hematuria noted at this point, but with the bladder completely decompressed , the anterior channel was continuous and maintained. As a result, I backfilled his bladder before p lacing an 18-Sudanese coude tipped catheter into his bladder with ease and placing 25 cc of sterile nell er in the balloon. The catheter was then connected to a leg bag and did drain light pink urine. He was then taken out of the lithotomy position, awakened from general anesthesia, transferred to a [facility], and then transferred to the recovery room in good condition. Complications: None. Discharge Disposition: He will be discharged with a prescription for Keflex for the next 3 days and will be given a voiding trial prior to discharge from the recovery room. If he is successfully able to void, subsequent followup may be established in 1-2 months. If he is unable to void prior to disc harge from the recovery, a catheter will be reinserted and he may remove it at home tomorrow morning at 7 a.m. PATRICIA/ESMER Voice ID: [id number] Report ID: [id number]
== END 2022-09-23 10:34 | disposition home or self-care (01) ==
LOC: OR 06:34
PROVIDERS: ATTEND Urology
PROC: 0T7D8DZ Dilation of Urethra with Intraluminal Device, Via Natural or Artificial Opening Endoscopic (ICD-10-PCS; principal; 2022-09-23 08:30)
DX: N40.1 Benign prostatic hyperplasia with lower urinary tract symptoms (principal); N13.8 Other obstructive and reflux uropathy; E11.9 Type 2 diabetes mellitus without complications; I10 Essential (primary) hypertension
CPT/HCPCS: 52441; 52442 ×7; 93005; 87088; 85025; 87086; 80048; 36415; 85610; 71046; J2704; J2001; J3010; J2405 ×2; J7120; J2250